=== PATIENT | female | born 1985 | race Caucasian/White ===

== ENCOUNTER 2018-06-06 17:40 | Emergency (ER) | payer MEDICAID, SELFPAY ==
[2018-06-06 17:49] VITALS: BP 95/58; PULSE 82; RESP 16; TEMP 36.8; O2SAT 99
--- NOTE | 2018-06-06 19:31 | ED.GENADUL_ITS ---
Disposition Clinical Impression: Contact dermatitis Disposition: HOME Condition: Stable Instructions: Dermatitis (ED) Additional Instructions: You may continue with your topical management as you have been previously to help with itch. Please take steroids as prescribed. Encourage hydration. Follow-up with primary care at the end of the week for reevaluation. If you develop pain, discharge, fever/chills or other new/worsening symptoms please seek care urgently once again. Prescriptions: PredniSONE [Deltasone] 40 mg PO .QD #10 tab Referrals: Jasmin Thomson [Primary Care Provider] - Medical Decision Making - Medical Decision Making Patient presents today with chief complaint of rash to the superior aspect of the left buttock. On exam, rash is consistent. Covering area of approximately 13 cm in diameter. Rash has persisted, has not been improving over the past week. Does appear excoriated and is quite bothersome to the patient. She has tried topical and oral [id number] agents to help with symptomatic management. She does report that the topical agents can help with itch briefly. However, given the length of symptoms I feel that treatment with steroids is appropriate at this time. Encourage hydration. We discussed care of the area and signs and symptoms of bacterial infection. Discussed when to seek care urgently once again. Advise follow-up with primary care in the next week for reevaluation. All of her questions and concerns were addressed and she is in agreement with this plan. History of Present Illness - General Chief complaint: RashLesion Stated complaint: UNKNOWN Time Seen by Provider: 06/06/18 19:29 Source: patient, RN notes reviewed Mode of arrival: ambulatory Limitations: no limitations - History of Present Illness Initial comments: Patient is a 32-year-old female presenting today with chief complaint of rash to the left side of her buttock. She reports that rash has been present for the past 7 days. Despite conservative management including hydrocortisone cream , Benadryl orally and spray, patient has not noted improvement of the rash. She reports that it is very pruritic. She denies any fevers or chills. She denies any pain. She is concerned she may have contracted poison shira as she has had in the past and feels quite similar. States that it began after wearing somebody else's pants. She denies having chatted with this other individual to see if they had similar rash. She does report that she is outside frequently and may also have come in contact with the plans. Patient is status post tubal ligation - Related Data PredniSONE [Deltasone] 40 mg PO .QD #10 tab 06/06/18 Allergies Allergy/AdvReac Type Severity Reaction Status Date / Time sulfamethoxazole Allergy Unknown Unverified 06/06/18 17:52 [From Bactrim] trimethoprim [From Bactrim] Allergy Unknown Unverified 06/06/18 17:52 aspirin AdvReac Severe rectal Unverified 06/06/18 17:52 bleeding Review of Systems Constitutional: no symptoms reported. denies: chills, fever, malaise Respiratory: no symptoms reported Musculoskeletal: denies: back pain, joint swelling Skin: as per HPI, rash Neurological: denies: abnormal gait Past Medical History - Past Medical History Medical history: no medical history Surgical history: no surgical history General Exam - General Limitations: no limitations General appearance: alert, in no apparent distress - Eye Eye exam: Present: normal apperance - Respiratory Respiratory exam: Absent: respiratory distress - GI/Abdominal GI/Abdominal exam: Present: other (No rash) - Extremities Exam Extremities exam: Present: normal inspection - Back Exam Back exam: Present: rash noted (Rashes noted on the superior aspect of the patient's left buttocks. Is erythematous, appears excoriated slightly raised. Patient is consistent with urticaria. No surrounding erythema. No pain elicited with palpation. No open area. No discharge) - Neurological Exam Neurological exam: Present: alert, normal gait - Psychiatric Psychiatric exam: Present: normal affect, normal mood - Skin Skin exam: Present: rash (As above) Course Vital Signs - 24 hr 06/06/18 17:49 Temperature 36.8 C Pulse 82 Respiratory 16 Rate Blood Pressure 95/58 Pulse Oximetry 99
== END 2018-06-06 19:40 | disposition home or self-care (01) ==
PROVIDERS: Emergency Provider Physician Assistant; PCP Family Medicine
DX: L25.9 Unspecified contact dermatitis, unspecified cause (principal)
CPT/HCPCS: 99283

== ENCOUNTER 2019-01-04 02:50 | Emergency (ER) | payer MEDICAID, SELFPAY ==
[2019-01-04 02:53] VITALS: BP 111/84; PULSE 90; RESP 16; TEMP 36.4; O2SAT 100
--- NOTE | 2019-01-04 03:07 | W.ED.GENAD ---
Discharge Plan Disposition Patient Disposition: HOME Condition: Stable Discharge Details Chief Complaint: Nk/Back Pain Clinical Impression: Acute torticollis Primary Care Provider: Abigail Vazquez ED Provider: Santana Arceo Home Meds and New Rx's Prescriptions: No Action No Known Home Meds RF: 0 Discharge Instructions Instructions: Spasmodic Torticollis (ED) Additional Instructions: 1. Drink plenty of fluids. 2. Continue all medications as prescribed. 3. Acetaminophen 1000mg every 4 hours (up to 5 time a day) and/or ibuprofen 600mg every 6 hours as needed for fever or pain. 4. Activity as tolerated. Ice sore areas frequently. Return to the Emergency Department (ED) if your condition worsens, does not improve as expected, or for ANY other concerns. Specifically, return if you have new or uncontrolled pain, worsening fever, difficulty breathing, vomiting, or are unable to drink fluids. Stand Alone Forms: Work Release Discharge Data Discharge Date/Time-TO BE ENTERED AT DEPARTURE: 01/04/19 03:37 Medical Decision Making Presents with new left-sided neck pain which began after she fell asleep on her couch and then later was walking towards her bedroom. No recent trauma or inciting event. She has no other constitutional complaints including no headache, radiating pain or neurological symptoms to her upper extremity. Exam significant for soft tissue tenderness which reproduces subjective pain. Full normal neurological exam and no pain or tenderness in the neck neurovascular distribution. Treated with OTC analgesia and with a paracervical muscle injection. Discharged with plan for OTC analgesia, ice as needed, and activity as tolerated. Pt evaluated immediately prior to discharge with improved symptoms, normal vital signs, and tolerating PO. The patient feels appropriate for discharge home. Discussed clinical/diagnostic findings. Discharged with a clear plan for outpatient follow up. Given usual and customary return instructions prior to discharge. Medical Records Medical records reviewed: Yes I reviewed the patient's medical records. HPI 33-year-old woman with a past medical history which includes tobacco abuse presents with new onset of severe left paracervical soft tissue neck pain. Ms. Espinosa recounts having fallen asleep on her couch and then as she got up and was walking upstairs towards her bedroom, felt a popping sensation to her left neck with severe neck pain. She presents with severe pain exacerbated by palpation or head rotation. She denies any generalized headache or pain radiating towards her upper extremities. She denies any visual changes, hearing loss, or focal extremity weakness/numbness/tingling. She denies palpitations or tachyarrhythmia. She has taken no analgesia prior to presentation here. General Date/Time Provider Initiated Documentation: 01/04/19 03:01. Related Data Home Medications Medication Instructions Recorded Confirmed Unknown [No Known Home Meds] 01/04/19 01/04/19 Allergies Allergy/AdvReac Type Severity Reaction Status Date / Time sulfamethoxazole Allergy Unknown Unverified 01/04/19 02:53 [From Bactrim] trimethoprim [From Bactrim] Allergy Unknown Unverified 01/04/19 02:53 aspirin AdvReac Severe rectal Unverified 01/04/19 02:53 bleeding General Stated Complaint: Nk/Back Pain SUE: 4 Review of Systems Review of Systems All systems are reviewed and are unremarkable except as noted in HPI and below: CONSTITUTIONAL: no fevers/chills, no weakness or change in appetite EYES: no change in vision HEENT: no throat pain or difficulty swallowing; left paracervical soft tissue neck pain and tenderness CARDIOVASCULAR: no chest pain, palpitations, leg swelling, or diaphoresis RESPIRATORY: no cough, dyspnea, wheezing GASTROINTESTINAL: no abdominal pain, melena, nausea/emesis GENITOURINARY: no dysuria, flank pain, MUSCULOSKELETAL: no pack pain, myalgias, arthralgias INTEGUMENTARY: no rash, no wounds NEUROLOGIC: no headache, focal weakness, difficulty with speech, numbness PSYCHIATRIC: no confusion, no anxiety HEME: no easy bruising or bleeding ALLERGIC: no urticaria [facility] Social History Smoking/Tobacco Use Status: Current every day Tobacco Type: cigarettes Alcohol Intake: current Alcohol Intake frequency: a few times a week Drug use: Never Substance use type: marijuana Do you feel safe at home: Yes Do you feel safe in your relationship?: Yes Exam Narrative Exam Narrative: Nursing note and vital signs have been reviewed and noted. GENERAL: alert, active, no acute distress, well -hydrated, well-nourished HEENT: atraumatic/normocephalic, PERRLA, EOMI, conjunctiva clear, external ears/canals normal, nasal mucosa normal NECK: Range of motion limited by left paracervical soft tissue pain. Exquisite soft tissue tenderness to palpation which reproduces subjective pain. No posterior cervical tenderness. No tenderness in the distribution of the carotid/internal jugular vascular distribution. CARDIOVASCULAR: nl pulses, no edema PULMONARY: nl effort, no audible wheezing or stridor ABDOMEN: non-distended EXTREMITY: normal muscle tone, all joints with FROM, no deformity NUERO: normal mentation, moving all extremities, normal stance and gait, no upper extremity motor weakness is suggestive of brachial plexus/upper nerve deficit. PSYCH: alert and oriented SKIN: no new rashes or lesions Course Vital Signs Temperature 97.5 F L 01/04/19 02:53 Pulse 90 01/04/19 02:53 Respiratory Rate 16 01/04/19 02:53 Blood Pressure 111/84 01/04/19 02:53 Pulse Oximetry 100 01/04/19 02:53 Temperature 97.5 F L 01/04/19 02:53 Temperature Source Temporal Artery Scan 01/04/19 02:53 Pulse 90 01/04/19 02:53 Respiratory Rate 16 01/04/19 02:53 Blood Pressure 111/84 01/04/19 02:53 Blood Pressure Position Sitting 01/04/19 02:53 Pulse Oximetry 100 01/04/19 02:53 Oxygen Delivery Method Room Air 01/04/19 02:53 Oxygen Flow Rate 0 01/04/19 02:53 Pain Level 4 01/04/19 02:53 Procedures Other Description: Paracervical superior trapezius injection: Soft tissue prepped 1.5 cm on either side of C6/7 with alcohol. Freeze spray used prior to inserting a 27-gauge needle into each paravertebral region. 1.5 cm of 0.5 bupivacaine injected after initially aspirating. Complication: None
[2019-01-04] MEDS: Acetaminophen 500 MG TAB 1000 MG PO (03:09)
[2019-01-04] MEDS: Ibuprofen 600 MG TAB PO (03:09)
--- NOTE | 2019-01-04 03:13 | ED.GENADUL_ITS ---
Discharge Plan Disposition Patient Disposition: HOME Condition: Stable Discharge Details Chief Complaint: Nk/Back Pain Clinical Impression: Acute torticollis Primary Care Provider: Abigail Vazquez ED Provider: Santana Arceo Home Meds and New Rx's Prescriptions: No Action No Known Home Meds RF: 0 Discharge Instructions Instructions: Spasmodic Torticollis (ED) Additional Instructions: 1. Drink plenty of fluids. 2. Continue all medications as prescribed. 3. Acetaminophen 1000mg every 4 hours (up to 5 time a day) and/or ibuprofen 600mg every 6 hours as needed for fever or pain. 4. Activity as tolerated. Ice sore areas frequently. Return to the Emergency Department (ED) if your condition worsens, does not improve as expected, or for ANY other concerns. Specifically, return if you have new or uncontrolled pain, worsening fever, difficulty breathing, vomiting, or are unable to drink fluids. Stand Alone Forms: Work Release Discharge Data Discharge Date/Time-TO BE ENTERED AT DEPARTURE: 01/04/19 03:37 Medical Decision Making Presents with new left-sided neck pain which began after she fell asleep on her couch and then later was walking towards her bedroom. No recent trauma or inciting event. She has no other constitutional complaints including no headache, radiating pain or neurological symptoms to her upper extremity. Exam significant for soft tissue tenderness which reproduces subjective pain. Full normal neurological exam and no pain or tenderness in the neck neurovascular distribution. Treated with OTC analgesia and with a paracervical muscle injection. Discharged with plan for OTC analgesia, ice as needed, and activity as tolerated. Pt evaluated immediately prior to discharge with improved symptoms, normal vital signs, and tolerating PO. The patient feels appropriate for discharge home. Discussed clinical/diagnostic findings. Discharged with a clear plan for o utpatient follow up. Given usual and customary return instructions prior to discharge. Medical Records Medical records reviewed: Yes I reviewed the patient's medical records. HPI 33-year-old woman with a past medical history which includes tobacco abuse presents with new onset of severe left paracervical soft tissue neck pain. Ms. Espinosa recounts having fallen asleep on her couch and then as she got up and was walking upstairs towards her bedroom, felt a popping sensation to her left neck with severe neck pain. She presents with severe pain exacerbated by palpation or head rotation. She denies any generalized headache or pain radiating towards her upper extremities. She denies any visual changes, hearing loss, or focal extremity weakness/numbness/tingling. She denies palpitations or tachyarrhythmia. She has taken no analgesia prior to presentation here. General Date/Time Provider Initiated Documentation: 01/04/19 03:01 . Related Data Home Medications Medication Instructions Recorded Confirmed Unknown [No Known Home Meds] 01/04/19 01/04/19 Allergies Allergy/AdvReac Type Severity Reaction Status Date / Time sulfamethoxazole Allergy Unknown Unverified 01/04/19 02:53 [From Bactrim] trimethoprim [From Bactrim] Allergy Unknown Unverified 01/04/19 02:53 aspirin AdvReac Severe rectal Unverified 01/04/19 02:53 bleeding General Stated Complaint: Nk/Back Pain SUE: 4 Review of Systems Review of Systems All systems are reviewed and are unremarkable except as noted in HPI and below: CONSTITUTIONAL: no fevers/chills, no weakness or change in appetite EYES: no change in vision HEENT: no throat pain or difficulty swallowing; left paracervical soft tissue neck pain and tenderness CARDIOVASCULAR: no chest pain, palpitations, leg swelling, or diaphoresis RESPIRATORY: no cough, dyspnea, wheezing GASTROINTESTINAL: no abdominal pain, melena, nausea/emesis GENITOURINARY: no dysuria, flank pain, MUSCULOSKELETAL: no pack pain, myalgias, arthralgias INTEGUMENTARY: no rash, no wounds NEUROLOGIC: no headache, focal weakness, difficulty with speech, numbness PSYCHIATRIC: no confusion, no anxiety HEME: no easy bruising or bleeding ALLERGIC: no urticaria [facility] Social History Smoking/Tobacco Use Status: Current every day Tobacco Type: cigarettes Alcohol Intake: current Alcohol Intake frequency: a few times a week Drug use: Never Substance use type: marijuana Do you feel safe at home: Yes Do you feel safe in your relationship?: Yes Exam Narrative Exam Narrative: Nursing note and vital signs have been reviewed and noted. GENERAL: alert, active, no acute distress, well -hydrated, well-nourished HEENT: atraumatic/normocephalic, PERRLA, EOMI, conjunctiva clear, external ears/canals normal, nasal mucosa normal NECK: Range of motion limited by left paracervical soft tissue pain. Exquisite soft tissue tenderness to palpation which reproduces subjective pain. No posterior cervical tenderness. No tenderness in the distribution of the caroti d/internal jugular vascular distribution. CARDIOVASCULAR: nl pulses, no edema PULMONARY: nl effort, no audible wheezing or stridor ABDOMEN: non-distended EXTREMITY: normal muscle tone, all joints with FROM, no deformity NUERO: normal mentation, moving all extremities, normal stance and gait, no upper extremity motor weakness is suggestive of brachial plexus/upper nerve deficit. PSYCH: alert and oriented SKIN: no new rashes or lesions Course Vital Signs Temperature 97.5 F L 01/04/19 02:53 Pulse 90 01/04/19 02:53 Respiratory Rate 16 01/04/19 02:53 Blood Pressure 111/84 01/04/19 02:53 Pulse Oximetry 100 01/04/19 02:53 Temperature 97.5 F L 01/04/19 02:53 Temperature Source Temporal Artery Scan 01/04/19 02:53 Pulse 90 01/04/19 02:53 Respiratory Rate 16 01/04/19 02:53 Blood Pressure 111/84 01/04/19 02:53 Blood Pressure Position Sitting 01/04/19 02:53 Pulse Oximetry 100 01/04/19 02:53 Oxygen Delivery Method Room Air 01/04/19 02:53 Oxygen Flow Rate 0 01/04/19 02:53 Pain Level 4 01/04/19 02:53 Procedures Other Description: Paracervical superior trapezius injection: Soft tissue prepped 1.5 cm on either side of C6/7 with alcohol. Freeze spray used prior to inserting a 27-gauge needle into each paravertebral region. 1.5 cm of 0.5 bupivacaine injected after initially aspirating. Complication: None
[2019-01-04] MEDS: Bupivacaine 0.5% Pres-Free 30 ML VIAL (03:25)
== END 2019-01-04 03:37 | disposition home or self-care (01) ==
LOC: ER 03:35
PROVIDERS: Emergency Provider Emergency Medicine; PCP Family Medicine
DX: M43.6 Torticollis (principal)
CPT/HCPCS: 99282

== ENCOUNTER 2021-04-04 13:37 | Emergency (ER) | payer MEDICAID, SELFPAY ==
[2021-04-04 13:40] VITALS: BP 119/74; PULSE 108; RESP 18; TEMP 37.2; O2SAT 98
--- NOTE | 2021-04-04 13:41 | ED.GENADUL_ITS ---
Discharge Plan Disposition Patient Disposition: HOME Condition: Stable Discharge Details Clinical Impression: Injury of knee Primary Care Provider: Abigail Vazquez ED Provider: Benjamin Marshall Home Meds and New Rx's Prescriptions: New oxycodone-acetaminophen [Percocet] 5-325 mg tablet 1 tab PO Q8H PRNQty: 8 RF: 0 Discharge Instructions Instructions: Swollen Knee Joint (ED) Additional Instructions: Percocet as directed, remember this medication may cause drowsiness and/or constipation. [id number] Motrin as directed for symptomatic control. Continue to wear Vincent wrap and knee immobilizer, continue to use crutches and be nonweightbearing. Rest, elevate, cool compresses every 2 hours for 20 minutes. Have your MRI performed on Wednesday as already scheduled and follow-up with the [facility] as scheduled. I am giving you the name and number of our orthopedic team here if you decide to be seen here in [facility] versus [facility]. Please watch for new or worsening symptoms and return to the ER for any concerns Referrals: Mane Dumont MD [ [facility] STAFF PHYSICIAN] - Discharge Data Discharge Date/Time-TO BE ENTERED AT DEPARTURE: 04/04/21 14:55 Medical Decision Making 35-year-old female presents with a left knee injury that she sustained last Wednesday, x-rays [facility] were unremarkable, diagnosed with a patella dislocation. Subsequently seen at the [facility] yesterday and awaiting MRI on Wednesday. Examination is difficult because of her guarding but certainly concerning for internal derangement. Neuro and vascular intact, normal dorsalis pedal pulse, capillary refill. No calf discomfort or palpable cord. Patient felt as though her questions were not answered yesterday, I spent ample time answering all of her questions and concerns to the best of my ability. Today I see no indication for repeat x-ray as she already had one. MRI is scheduled for just a few days from now. She already is placed in an Vincent wrap, knee immobilizer and has crutches. After answering all of her questions, she does feel more comfortable with the overall situation and understands that she will need an MRI and if the MRI shows internal derangement then likely she will require surgery for definitive care. I will provide her with a referral to our orthopedic team as she is not sure she wants to go back to the [facility]. Lastly, I will provide her with a tablets additional for Percocet as she has run out of her prescription. We discussed the importance of anti-inflammatory medication, resting, elevating, and cool compresses. Encouraged to return to the ER for new or worsening symptoms. Medical Records Medical records reviewed: Yes I reviewed the patient's medical records. HPI General Mode of arrival: ambulatory . Date/Time Provider Initiated Documentation: 04/04/21 13:41 . Limitations to Documentation: no limitations . Information obtained by: patient . HPI Narrative: 35-year-old female, denies significant past medical history, presenting for left knee pain. She states that last Wednesday she dislocated her patella, was seen at [facility], had an x-ray and set up with orthopedics. She subsequently followed up with [facility] yesterday, she states that they did not really give her any additional information, she is out of pain medication, and she is awaiting MRI on Wednesday. She is frustrated because she lives in a house with many stairs, is h aving a hard time getting around, and does not know if there is anything else that she should be doing. Patient is already wearing Vincent wrap, knee immobilizer, and using crutches, nonweightbearing. She denies any additional injury, chest pain, shortness of breath, numbness, weakness. She does report that her lower extremities occasionally tingling with certain positioning. Related Data Home Medications Medication Instructions Recorded Confirmed oxycodone-acetaminophen [Percocet] 1 tab PO Q8H PRN #8 tab 04/04/21 Previous Rx's Medication Instructions Recorded oxycodone-acetaminophen [Percocet] 1 tab PO Q8H PRN #8 tab 04/04/21 Allergies Allergy/AdvReac Type Severity Reaction Status Date / Time sulfamethoxazole Allergy Unknown Unverified 04/04/21 13:44 [From Bactrim] trimethoprim [From Bactrim] Allergy Unknown Unverified 04/04/21 13:44 aspirin AdvReac Severe rectal Unverified 04/04/21 13:44 bleeding General SUE: 4 Review of Systems Constitutional Constitutional: Denies fever(s) and Denies weakness Cardiovascular Cardiovascular: Denies chest pain and Denies dyspnea Respiratory Respiratory: Denies dyspnea Musculoskeletal Musculoskeletal: Reports arthralgias, Denies numbness, Reports stiffness and Reports tingling Integumentary/Breasts Skin/Breast: Denies rash Neurologic Neurologic: Denies numbness, Reports tingling and Denies weakness [facility] Social History Smoking/Tobacco Use Status: Former Tobacco Use Quit Date: 03/11/21 Smoking risk assessment performed?: Yes Alcohol Intake: current Alcohol Intake frequency: a few times a week Drug use: Occasionally Substance use type: marijuana Do you feel safe at home: Yes Do you feel safe in your relationship?: Yes Exam Const General: cooperative, healthy appearing, comfortable and no acute distress Orientation: alert and awake HENMT Head: normal to inspection, normocephalic and atraumatic Eyes Conjunctivae: conjunctivae normal Neck Neck: normal visual inspection, trachea midline and supple Resp Effort & Inspection: normal respiratory effort and able to speak in complete sentences Cardio Rate: regular rate Rhythm: regular rhythm Skin General skin exam: no rashes or lesions noted Neuro General: patient alert, patient awake, moves all extremities and no focal motor deficits Cognition: normal cognition Speech: speech normal Gait: gait assisted Method: crutches Sensory Exam: no sensory deficits noted Extrem General: capillary refill normal Left lower extremity: normal capillary refill, hip/thigh Details: tenderness and normal ROM; no swelling, knee Details: abnormal to inspection, tenderness, swelling and abnormal ROM, lower leg Details: tenderness and no edema; no palpable cords, ankle Details: normal to inspection, no edema and normal ROM; no tenderness and no swelling and foot Details: normal capillary refill, normal to inspection and toes with normal ROM; no tenderness Other: Patient with diffuse ecchymosis from the lateral thigh down to the mid tib-fib region. Knee with diffuse anterior ecchymosis, swelling, very limited examination. Patient holds her knee in slightly flexed position. Limited range of motion secondary to discomfort. There is discomfort with palpation diffusely, increased pain with anterior drawer, varus and valgus stress. Difficult to assess for laxity of the joint. Normal dorsalis pedal pulse and capillary refill. Psych Appearance: grossly normal Mental Status: mental status grossly normal
== END 2021-04-04 14:55 | disposition home or self-care (01) ==
PROVIDERS: Emergency Provider Physician Assistant; PCP Family Medicine
DX: S83.092A Other subluxation of left patella, initial encounter (principal); X58.XXXA Exposure to other specified factors, initial encounter
CPT/HCPCS: 99283

== ENCOUNTER 2021-06-07 10:09 | Outpatient (REF) | payer MEDICAID, SELFPAY ==
[2021-06-09 13:06] LABS: COVID-19 RT-PCR UVMMC Result Negative (Negative)
== END 2021-06-07 10:10 | disposition home or self-care (01) ==
LOC: NCHCN 10:09
PROVIDERS: PCP Family Medicine; Visit Provider Nurse Practitioner Family
DX: J06.9 Acute upper respiratory infection, unspecified (principal); Z20.822 Contact with and (suspected) exposure to COVID-19
CPT/HCPCS: U0003

== ENCOUNTER 2024-10-10 14:40 | Outpatient (REF) | payer SELFPAY ==
--- OUTSIDE RECORDS SUMMARY | 2024-10-10 14:45 | XMS_ITS | Encounter Summary ---
Author Organization [facility] Address [facility] [place] [address] Care Team Providers Care Director Of Teenage Activities Name Role Phone Deborah Rodriguez IUSS MASTER ANALYST Primary Care Provider [phone] Reason for Visit * Reason Comments Follow-up Psoriasis Encounter Details Date Type Department Care Team (Late st Contact Info) Description 10/24/2015 2:00 PM EST Office Visit Dermatology at [place] [address] [facility] [place] [phone] Perry Ocasio MD [address], [place] [address] Psoriasis Social History Tobacco Use Types Packs/Day Years Used Date Smoking Tobacco: Former Sex and Gender Information Value Date Recorded Sex Assigned at Not on file Gender Identity Not on file Sexual Orientation Not on file documented as of this encounter Patient Instructions * Patient Instructions* Sylvie Murphy LPN - 10/24/2015 2:06 PM EST Images from the original note were not included. [facility] Psoriasis: After Your Visit Your Care Instructions Psoriasis (say dzs-JX-mi-cat) is a long-term skin problem that causes thick, white, silvery, or red patches on the skin. The patches may be small or large, and they occur most often on the knees, elbows, scalp, hands, feet, or lower back. The skin may be scaly. If the condition is severe, your skin can become itchy and tender. Psoriasisalso can be embarrassing if the patches are on visible areas. You can treat psoriasis with good care at home and with medicine from your doctor. You may put medicine on your skin and take pills or have shots to stop the redness and swelling. Your doctor also may suggest ultraviolet light treatments. Follow-up care is a dunn part of your treatment and safety. Be sure to make and go to all appointments, and call your doctor if you are having problems. It???s also a good idea to know your test results and keep a list of the medicines you take. How can you care for yourself at home? ?? If your doctor prescribes medicine, use it exactly as prescribed. Call your doctor if you think you are having a problem with your medicine. ?? Keep your skin moist. After bathing, put an ointment, cream, or lotion on your skin while it is still damp. This seals in moisture. Use ners-gvt-xbdnaja products that your doctor suggests. These may include Cetaphil, Lubriderm, or Eucerin. Petroleum jelly (such as Vaseline) and vegetable shortening (such as Crisco) also work. ?? If you have psoriasis on your scalp, use a mild tar shampoo, such as Neutrogena T/Gel, Polytar, or Zetar. Other scalp lotions, such as Dritho-Scalp, can be applied for several hours and then washed out. Shampoos that contain zinc pyrithione (such as Danex or Head & Shoulders), or selenium sulfide (such as Exsel or Selsun) may also help. ?? Gently soften and remove skin crusts. Put cream on the crusts and then peel off loose crusts. Removing crusts may help creams and lotions get into the skin. However, peel off crusts carefully so that you do not irritate your skin. ?? Follow your doctor's advice for sunlight or ultraviolet light treatment. ?? Avoid harsh skin products, such as those that contain alcohol. ?? Cover your skin in cold weather. ?? Try to prevent sunburn. Although short periods of sun exposure reduce psoriasis in most people, too much sun can damage the skin and cause skin cancer. In addition, sunburns can trigger psoriasis.Use sunscreen on areas of your skin that do not have psoriasis. Make sure the sunscreen blocks ultraviolet rays (both UVA and UVB) and has a sun protection factor (SPF) of at least 15. Use it every day, even when it is cloudy. Some doctors may recommend a higher SPF, such as 30. ?? Take care to avoid accidents such as cutting or scraping your skin. An injury to the skin can cause psoriasis patches to form anywhere on the body, including the area of the injury. ?? Avoid tight shoes, clothing, watchbands, and hats. These may irritate your skin. ?? Try to control stress and anxiety. They may cause psoriasis to appear suddenly or can make symptoms worse. ?? Use a vaporizer or humidifier to add moisture to your bedroom. Follow the directions for cleaning the machine. ?? Seek support from family and friends. Talk to a counselor or other professional if you feel sad about your condition and need more help. When should you call for help? Call your doctor now or seek immediate medical care if: ?? You have signs of infection, such as: ?? Increased pain, swelling, warmth, or redness. ?? Red streaks leading from the area. ?? Pus draining from the area. ?? A fever. Watch closely for changes in your health, and be sure to contact your doctor if: ?? Your skin is more red and irritated than usual, especially if you also have another illness. ?? You need to talk to someone about how you are coping with the illness. Where can you learn more? Visit our health information library at http://Localocracy/[employer] IP Servicesinfo You can also view health information on [employer], your personal patient account. Log in or sign up today. Enter U759 in the search box to learn more about Psoriasis: After Your Visit. ?? [id number] [employer]. Care instructions adapted under license by [facility]. This care instruction is for use with your licensed healthcare professional. If you have questions about a medical condition or this instruction, always ask your healthcare professional. [employer] disclaims any warranty or liability for your use of this information. Content Version: 10.4.303365; Current as of: December 20, 2013 documented in this encounter Progress Notes * Perry Ocasio MD - 10/24/2015 2:16 PM EST Problems: 1. Followup psoriasis. 2. Previously on methotrexate, August through September 2013, off since then. 3. Controlling psoriasis with intermittent Kenalog injections for elbow involvement. Lisha follows up and has been doing well. Her psoriasis started to come back again, this despite using the halobetasol cream. Also, she has had a problem with acne, which is a new problem for her on her face. She is still having regular menstrual cycles. There is no periodicity to her acne. Physical examination today reveals a pleasant, 30-year-old woman who has small plaques of psoriasis, one on the left and one on the right elbow, each about a nickel size with adjacent dime-size plaques next to it. She has no other areas of involvement. Assessment and Plan: 1. Psoriasis, mild recurrence, bilateral elbows. Nothing on her shins. a. Today the elbow sites were injected with Kenalog 5 mg/mL; a total of 2.5 mL was injected. b. Patient tolerated it well. c. Return to clinic p.r.n. for recurrence. d. Previously the patient had tried clobetasol and fluocinonide creams. 2. Adult acne. a. Begin trial of 1% clindamycin solution, applying to face once daily after washing. b. Continue to use Clearasil wipes twice daily. COPY: Daryn Barbosa M.D. documented in this encounter Plan of Treatment Upcoming Encounters Date Type Department Care Team (Late st Contact Info) Description 10/17/2024 3:30 PM EST Office Visit Dermatology at [place] [address] [facility] [place] [address] Perry Ocasio MD [address] [facility], [place] [address] documented as of this encounter Visit Diagnoses Diagnosis Psoriasis Other psoriasis documented in this encounter Care Teams Director Of Teenage Activities Relationship Specialty Start Date End Date Deborah Rodriguez APRN [facility] 1 [facility] [place] [address] PCP - General 09/12/13 04/05/17 documented as of this encounter
--- OUTSIDE RECORDS SUMMARY | 2024-10-10 14:45 | XMS_ITS | Encounter Summary ---
Author Organization [facility] Address [address] [place] [address] Care Team Providers Care Sliver Machine Operator Name Role Phone Unavailable Primary Care Provider Unavailabl e Encounter Details Date Type Department Care Team (Late st Contact Info) Description 11/11/2001 Results Only [facility] - Maple conversion [address] [place] [address] Abigail Vazquez MD [address] [facility] [address] [place] [address] Social History Tobacco Use Types Packs/Day Years Used Date Smoking Tobacco: Never Assessed Comments Unknown Sex and Gender Information Value Date Recorded Sex Assigned at Not on file Legal Sex Female 18:26 EST Gender Identity Not on file Sexual Orientation Not on file documented as of this encounter Plan of Treatment Not on file documented as of this encounter Procedures Procedure Name Priority Date/Time Associated Diagnosis Comments CYTOPATHOLOGY Routine 11/11/2001 0:00 EST documented in this encounter Results * CYTOPATHOLOGY (11/11/2001 0:00 EST) Pathology Report: CYTOPATHOLOGY REPORT Reports generated via electronic interface contain original data; however they are lacking the format of the original report. Caution should be taken when reading/interpreti ng unformatted reports. Name: ? WYATT ESPINOSA ? Accession #: ? [id number] : ? 1985 (Age: 16) ??F ?Collect Date: ? 11/11/2001 Location: ? [facility] ? Receive Date: ? 11/15/2001 Provider: ?ABIGAIL VAZQUEZ MD Copy to: ? Specimen/Source: ?ThinPrep Pap Test, Cervix/Endocervix Last Menstrual Period: ? 11/05/01 Menstrual/Pregnanc y Status: ? Post Previous Gynecologic Pathology: ? ASC-US ? SPECIMEN ADEQUACY ? Satisfactory for Evaluation - transformation zone component present GENERAL CATEGORIZATION ? Negative for Intraepithelial Lesion or Malignancy ? Document reviewed and electronically signed by: ? Angela Henry, GROVER(ASCP)(IAC) ? Report Date: ??11/16/2001 16:26 End of Report ANTHONY GUILLERMO 11/11/2001 11/15/2001 us Abigail Vazquez MD PATHOLOGY ORDERABLES Final Resul t ANTHONY GUILLERMO [address] [place] [address] documented in this encounter Visit Diagnoses Not on filedocumented in this encounter
--- OUTSIDE RECORDS SUMMARY | 2024-10-10 14:45 | XMS_ITS | Encounter Summary ---
Author Organization [facility] Address [address] [place] [address] Care Team Providers Care Director Of Pharmacy Name Role Phone Unavailable Primary Care Provider Unavailabl e Encounter Details Date Type Department Care Team (Latest Contact Info) Description 09/09/2001 10:15 EST - 09/09/2001 11:59 EST Hospital Encounter [address] [address] Bessy Perez MD Discharge Disposition: Auto Discharge Social History Tobacco Use Types Packs/Day Years Used Date Smoking Tobacco: Never Assessed Comments Unknown Sex and Gender Information Value Date Recorded Sex Assigned at Not on file Legal Sex Female 18:26 EST Gender Identity Not on file Sexual Orientation Not on file documented as of this encounter Discharge Disposition Disposition Code Departure Means Destination Auto Discharge documented in this encounter Plan of Treatment Not on file documented as of this encounter Visit Diagnoses Not on filedocumented in this encounter
--- OUTSIDE RECORDS SUMMARY | 2024-10-10 14:45 | XMS_ITS | Encounter Summary ---
Author Organization [facility] Address [facility] [place] [address] Care Team Providers Care Digital Solutions Architect Name Role Phone Jasmin Thomson DO Primary Care Provider Unava ilable Reason for Visit * Reason Comments Psoriasis Encounter Details Date Type Department Care Team ([facility] st Contact Info) Description 12/05/2019 2:45 PM EST Office Visit Dermatology at [address] [place] [phone] Perry Ocasio MD [address], [place] [address] Psoriasis; Acne vulgaris Social History Tobacco Use Types Packs/Day Years Used Date Smoking Tobacco: Former Smokeless Tobacco: Never Sex and Gender Information Value Date Recorded Sex Assigned at Not on file Gender Identity Not on file Sexual Orientation Not on file documented as of this encounter Progress Notes * Perry Ocasio MD - 12/05/2019 2:45 PM EST Problem: 1. 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 ??Previously on methotrexate August - September 2013 3. ??Controlling her psoriasis with intermittent Kenalog injections for elbow involvement 4. ??Utilizing clindamycin 1% solution??prn??for adult acne Lisha follows up for repeat Kenalog injection. She is looking forward to leaving in mid December on atrip to [facility]. She wants to have her psoriasis and skin clear before then. Physical examination reveals a pleasant 34-year-old woman who has small papules of psoriasis on theleft elbow and the right distal dorsal foot. Little bit on the right medial Alley malleolus and will bit on the right elbow also she has a spot on the left lower hip Assessment and plan: Psoriasis, recurrent 1. Today after obtaining informed consent sites were injected with Kenalog 5 mg/mL a total of 2 mils utilized 2. Patient has tried numerous creams in the past and do not really seem to slow down the recurrenceof this nor do they help to clear the small papules 3. Recommend therefore that she is a good emollient cream to slow down the recurrence and return toclinic in 6 months for repeat check Acne vulgaris 1. Largely quiescent 2. Patient does have clindamycin 1% solution that she can apply as needed for mild flares. We will be happy to give her refills as needed. Cc: Jasmin Thomson DO documented in this encounter Plan of Treatment Upcoming Encounters Date Type Department Care Team (Late st Contact Info) Description 10/17/2024 3:30 PM EST Office Visit Dermatology at [place] [address] [facility] [place] [address] Perry Ocasio MD [address] [facility], [place] [address] documented as of this encounter Visit Diagnoses Diagnosis Psoriasis Other psoriasis Acne vulgaris Other acne documented in this encounter Care Teams Digital Solutions Architect Relationship Specialty Start Date End Date Jasmin Thomson DO PCP - General Family Medicine 04/06/17 09/20/23 documented as of this encounter
--- OUTSIDE RECORDS SUMMARY | 2024-10-10 14:45 | XMS_ITS | Encounter Summary ---
Author Organization [facility] [place] [address] Care Team Providers Care Sole Conditioner Name Role Phone Jasmin Thomson DO Primary Care Provider Unava ilable Encounter Details Date Type Department Care Team (Latest Contact Info) Description 09/10/2023 Travel Social History Tobacco Use Types Packs/Day Years Used Date Smoking Tobacco: Former Smokeless Tobacco: Never Sex and Gender Information Value Date Recorded Sex Assigned at Not on file Gender Identity Not on file Sexual Orientation Not on file documented as of this encounter Plan of Treatment Upcoming Encounters Date Type Department Care Team (Late st Contact Info) Description 10/17/2024 3:30 PM EST Office Visit Dermatology at [place] [address] [place] [phone] Perry Ocasio MD [address], [place] [address] documented as of this encounter Visit Diagnoses Not on filedocumented in this encounter Care Teams Sole Conditioner Relationship Specialty Start Date End Date Jasmin Thomson DO PCP - General Family Medicine 04/06/17 09/20/23 documented as of this encounter
--- OUTSIDE RECORDS SUMMARY | 2024-10-10 14:45 | XMS_ITS | Encounter Summary ---
Author Organization [facility] Address [facility] [place] [address] Care Team Providers Care Human Resources Mgr Name Role Phone Daryn Barbosa MD Primary Care Provider [phone] Reason for Visit * Reason Comments Follow-up Encounter Details Date Type Department Care Team (Late st Contact Info) Description 09/11/2013 3:30 PM EST Office Visit Dermatology at [address] [place] [phone] Perry Ocasio MD [address] [facility], [place] [address] Psoriasis (Primary Dx) Social History Tobacco Use Types Packs/Day Years Used Date Smoking Tobacco: Unknown Sex and Gender Information Value Date Recorded Sex Assigned at Not on file Gender Identity Not on file Sexual Orientation Not on file documented as of this encounter Progress Notes * Perry Ocasio MD - 09/11/2013 4:00 PM EST Problem: Psoriasis, one month check. Lisha follows up and has been now on methotrexate for a month. She has seen marked improvement. Her psoriasis has really improved significantly. Physical examination reveals a pleasant 27-year-old woman who has significant flattening of the plaques of psoriasis over the elbows and almost total clearance of the guttate lesions on the arms, torso, and legs. She does have some hypopigmentation at sites of previous involvement. She just had her labs done this morning and they are not yet available from the lab. Assessment and Plan: 1. Psoriasis. a. Continue one more month of the current dosing of methotrexate, taking six of the 2.5 mg tablets p.o. every Wednesday, #24 dispensed with zero refills. b. After another month of this therapy, taper by one pill a week, to five, to four, to three, two, one, and then off of methotrexate after five additional weeks of therapy, #15 dispensed with zero refills. c. Prescription given for clobetasol cream, which she can use on a p.r.n. basis for any elbow involvement/recurrence. I am hopeful, however, that she will not have a major flare and that she will be able again to control her psoriasis just with topicals, as she has been able to do for the last three years prior to the strep pharyngitis and her guttate flare this summer. Return to clinic here will be on a p.r.n. basis. Patient knows to contact me if she has any flaring of her psoriasis again. COPY: Daryn Barbosa M.D. documented in this encounter Plan of Treatment Upcoming Encounters Date Type Department Care Team (Late st Contact Info) Description 10/17/2024 3:30 PM EST Office Visit Dermatology at [place] [address] [facility] [place] [address] Perry Ocasio MD [address], [place] [address] documented as of this encounter Visit Diagnoses Diagnosis Psoriasis- Primary Other psoriasis documented in this encounter Care Teams Human Resources Mgr Relationship Specialty Start Date End Date Daryn Barbosa MD [facility] [address] [place] [address] PCP - General 07/18/13 09/11/13 documented as of this encounter
--- OUTSIDE RECORDS SUMMARY | 2024-10-10 14:45 | XMS_ITS | Encounter Summary ---
Author Organization [facility] Address [address] [place] [address] Care Team Providers Care C++ Quant Developer Name Role Phone Unavailable Primary Care Provider Unavailabl e Encounter Details Date Type Department Care Team (Late st Contact Info) Description 06/12/2003 Results Only [facility] - Maple conversion [address] [place] [address] Cecille Buenrostro MD [address] [place] [address] Social History Tobacco Use Types Packs/Day Years [...] Priority Date/Time Associated Diagnosis Comments CYTOPATHOLOGY Routine 06/12/2003 0:00 EDT documented in this encounter Results * CYTOPATHOLOGY (06/12/2003 0:00 EDT) Pathology Report: CYTOPATHOLOGY REPORT Reports generated via electronic interface contain original data; however they are lacking the format of the original report. Caution should be taken when reading/interpreti ng unformatted reports. Name: ? WYATT ESPINOSA ? Accession #: ? [id number] : ? 1985 (Age: 17) ??F ?Collect Date: ? 06/12/2003 Location: ? [facility] ? Receive Date: ? 06/14/2003 Provider: ?CECILLE BUENROSTRO MD Copy to: ? Specimen/Source: ?ThinPrep Pap Test, Cervix/Endocervix Last Menstrual Period: ? Menstrual/Pregnanc y Status: ? Post Other: ? HPVA - HPV testing requested if ASC-US on the current ThinPrep Pap test. ? SPECIMEN ADEQUACY ? Unsatisfactory for Evaluation, - insufficient numbers of squamous epithelial cells (less than 10% of expected cellularity) - sample preparation compromised by excessive blood GENERAL CATEGORIZATION ? Specimen processed and examined, but unsatisfactory for evaluation of epithelial abnormality. Recommend repeat Pap test or further follow up, as clinically indicated. ? Document reviewed and electronically signed by: ? Angela Henry, GROVER(ASCP)(IAC) ? Report Date: ??06/18/2003 15:57 End of Report ANTHONY GUILLERMO 06/12/2003 06/14/2003 us Cecille Buenrostro MD PATHOLOGY ORDERABLES Final Resul t ANTHONY GUILLERMO [address] [place] [address] documented in this encounter Visit Diagnoses Not on filedocumented in this encounter
--- OUTSIDE RECORDS SUMMARY | 2024-10-10 14:45 | XMS_ITS | Encounter Summary ---
Author Organization [facility] Address [address] [place] [address] Care Team Providers Care Cadence Specialists Name Role Phone Unavailable Primary Care Provider Unavailabl e Encounter Details Date Type Department Care Team (Latest Contact Info) Description 08/26/2001 13:53 EST Hospital Encounter [facility] [address] [place] [address] Bessy Perez MD Discharge Disposition: Auto Discharge [...]
--- OUTSIDE RECORDS SUMMARY | 2024-10-10 14:45 | XMS_ITS | Encounter Summary ---
Author Organization [facility] [place] [address] Care Team Providers Care Epic Prelude Analyst Name Role Phone Deborah Rodriguez DIRECTOR OF ENTERPRISE APPLICATIONS Primary Care Provider [phone] Reason for Visit * Reason Comments Psoriasis Encounter Details Date Type Department Care Team (Late st Contact Info) Description 05/22/2016 4:45 PM EDT Office Visit Dermatology at [address] [place] [phone] Perry Ocasio MD [address] [facility], [place] [address] Psoriasis Social History Tobacco Use Types Packs/Day Years Used Date Smoking Tobacco: Former Sex and Gender Information Value Date Recorded Sex Assigned at Not on file Gender Identity Not on file Sexual Orientation Not on file documented as of this encounter Progress Notes * Perry Ocasio MD - 05/22/2016 4:45 PM EDT PROBLEM: 1. Followup psoriasis. 2. Previously on methotrexate, August through September 2013, off since then. 3. Controlling psoriasis with intermittent Kenalog injections for elbow involvement. 4. The patient is currently , she is due in August 2016. Lisha follows up and is doing well. She is here today with her daughter, Ann, and a niece, Mariah. She has been doing well, although she has a little bit of psoriasis on either elbow. Physical examination today reveals two 1.5 cm plaques of psoriasis, 1 on the left, 1 on the right elbow. Otherwise she is clear. She has nothing on her knees or shins. Her psoriasis is little bit better now, perhaps because of her being . ASSESSMENT AND PLAN: Psoriasis, mild recurrence, bilateral elbows, nothing on shins. A. Today sites were injected with Kenalog 1 mg/mL, a total of 1 mL injected between the 2 sites. B. The patient tolerated well. C. Return to clinic p.r.n. for recurrence. D. Reassured her about the safety of Kenalog injection during and wished her well for her delivery. cc: Daryn Barbosa MD documented in this encounter Plan of Treatment Upcoming Encounters Date Type Department Care Team (Late st Contact Info) Description 10/17/2024 3:30 PM EST Office Visit Dermatology at [place] [address] [facility] [place] [address] Perry Ocasio MD [address], [place] [address] documented as of this encounter Visit Diagnoses Diagnosis Psoriasis Other psoriasis documented in this encounter Care Teams Epic Prelude Analyst Relationship Specialty Start Date End Date Deborah Rodriguez APRN [facility] [address] [place] [address] PCP - General 09/12/13 04/05/17 documented as of this encounter
--- OUTSIDE RECORDS SUMMARY | 2024-10-10 14:45 | XMS_ITS | Encounter Summary ---
Author Organization [facility] Address [facility] [place] [address] Care Team Providers Care Acid Purification Equipment Operator Name Role Phone Jasmin Thomson DO Primary Care Provider Unava ilable Reason for Visit * Reason Comments Follow-up Psoriasis Encounter Details Date Type Department Care Team (Late st Contact Info) Description 12/06/2017 3:30 PM EST Office Visit Dermatology at [address] [place] [phone] Perry Ocasio MD [address], [place] [address] Psoriasis Social History Tobacco Use Types Packs/Day Years Used Date Smoking Tobacco: Former Smokeless Tobacco: Never Sex and Gender Information Value Date Recorded Sex Assigned at Not on file Gender Identity Not on file Sexual Orientation Not on file documented as of this encounter Progress Notes * Perry Ocasio MD - 12/06/2017 3:30 PM EST Problem: 1. Follow-up psoriasis 2. Previously on methotrexate, August - September 2013, off since then 3. Controlling her psoriasis with intermittent Kenalog injections for elbow involvement Lisha follows up is doing wonderfully. She is been doing well with just a slight recurrence after totally clearing following her last set of injections in March. She has noted a recurrence for the last month or so just on her left elbow really nothing much on the right. She gave about a year ago now to her healthy baby girl, Zahraa Alvarado. Physical examination feels a pleasant 32-year-old woman who continues to work at [employer] in [place]. She has a single 1.5 cm plaque on the left elbow, 2 small papules on the right elbow otherwise his psoriasis is clear Assessment plan: Psoriasis, mild recurrence bilateral elbows left worse than right 1. Today both sites were injected with Kenalog 5 mg/mL a total of 1 mL injected between both sites 2. Patient tolerated well 3. Return to clinic in another 6 months for repeat check. Cc: Jasmin Thomson DO documented in this encounter Plan of Treatment Upcoming Encounters Date Type Department Care Team (Late st Contact Info) Description 10/17/2024 3:30 PM EST Office Visit Dermatology at [place] [address] [place] [phone] Perry Ocasio MD [address] [facility], [place] [address] documented as of this encounter Visit Diagnoses Diagnosis Psoriasis Other psoriasis documented in this encounter Care Teams Acid Purification Equipment Operator Relationship Specialty Start Date End Date Jasmin Thomson DO PCP - General Family Medicine 04/06/17 09/20/23 documented as of this encounter
--- OUTSIDE RECORDS SUMMARY | 2024-10-10 14:45 | XMS_ITS | Encounter Summary ---
Author Organization [facility] Address [facility] [place] [address] Care Team Providers Care Geodetic Advisor Name Role Phone Jasmin Thomson DO Primary Care Provider Unava ilable Encounter Details Date Type Department Care Team (Late st Contact Info) Description 12/10/2020 4:30 PM EST Office Visit Dermatology at [address] [place] [phone] Perry Ocasio MD [address] [facility], [place] [address] Acne vulgaris; Psoriasis Social History Tobacco Use Types Packs/Day Years Used Date Smoking Tobacco: Former Smokeless Tobacco: Never Sex and Gender Information Value Date Recorded Sex Assigned at Not on file Gender Identity Not on file Sexual Orientation Not on file documented as of this encounter Progress Notes * Perry Ocasio MD - 12/10/2020 4:30 PM EST Problem: 1. 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 ??Previously on methotrexate August - September 2013 3. ??Controlling her psoriasis with intermittent Kenalog injections for elbow involvement 4. ??Utilizing clindamycin 1% solution??prn??for adult acne ?? Lisha follows up after last being seen in May. Actually things are doing quite well. She has a minimal amount of psoriasis developing just distal to the extensor elbows. The elbows themselves areclear. The somewhat atrophic site on the buttock has largely resolved fortunately. She continues working at [employer] in [facility]. Physical examination reveals minimal psoriasis some early papules developing on both extensor elbows. Assessment and plan: Psoriasis 1. Today Kenalog 5 mg/mL was injected into both sites 2. Return to clinic in 2 months for recheck 3. Patient is concerned that the elbows themselves will be soon to follow, therefore she requests today a 2-month follow-up for potential elbow injection at that time. If doing well she will cancel that and will make it for 6 months from now. CC: Jasmin Thomson DO documented in this encounter Plan of Treatment Upcoming Encounters Date Type Department Care Team (Late st Contact Info) Description 10/17/2024 3:30 PM EST Office Visit Dermatology at [place] [address] [place] [phone] Perry Ocasio MD [address] [facility], [place] [address] documented as of this encounter Visit Diagnoses Diagnosis Acne vulgaris Other acne Psoriasis Other psoriasis documented in this encounter Care Teams Geodetic Advisor Relationship Specialty Start Date End Date Jasmin Thomson DO PCP - General Family Medicine 04/06/17 09/20/23 documented as of this encounter
--- OUTSIDE RECORDS SUMMARY | 2024-10-10 14:45 | XMS_ITS | Encounter Summary ---
Author Organization [facility] Address [facility] [place] [address] Care Team Providers Care Curtains And Draperies Salesperson Name Role Phone Jasmin Thomson DO Primary Care Provider Unava ilable Reason for Visit * Reason Comments Follow-up Encounter Details Date Type Department Care Team ([facility] st Contact Info) Description 09/10/2023 8:15 AM EST Office Visit Dermatology at [address] [place] [phone] Perry Ocasio MD [address], [place] [address] Psoriasis Social History Tobacco Use Types Packs/Day Years Used Date Smoking Tobacco: Former Smokeless Tobacco: Never Sex and Gender Information Value Date Recorded Sex Assigned at Not on file Gender Identity Not on file Sexual Orientation Not on file documented as of this encounter Progress Notes * Perry Ocasio MD - 09/10/2023 8:15 AM EST Problem: 1. Follow-up psoriasis recurrent on elbows 2. Previously on methotrexate August - September 2013 3. Controlling her psoriasis with intermittent Kenalog injections for elbow involvement 4. Utilizing clindamycin 1% solution prn for adult acne Lisha follows up for a 6-month check. She has been doing well. 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 Physical examination reveals a pleasant 38-year-old woman who has mild psoriasis recurring on her left elbow roughly a 1-1/2 cm plaque, with none on the right. She has no other areas of involvement. She is very pleased. Assessment plan: Psoriasis recurrent on the left elbow only 1. Today Kenalog 5 mg/mL injected into the left elbow site a total of 1.5 mL injected 2. Return to clinic in another 6 months for recheck 3. Patient knows she can return sooner if her right elbow does not develop recurrence. CC: Samir Carrillo DO documented in this encounter Plan of Treatment Upcoming Encounters Date Type Department Care Team (Late st Contact Info) Description 10/17/2024 3:30 PM EST Office Visit Dermatology at [place] [address] [place] [address] Perry Ocasio MD [address] [facility], [place] [address] documented as of this encounter Visit Diagnoses Diagnosis Psoriasis Other psoriasis documented in this encounter Care Teams Curtains And Draperies Salesperson Relationship Specialty Start Date End Date Jasmin Thomson DO PCP - General Family Medicine 04/06/17 09/20/23 documented as of this encounter
--- OUTSIDE RECORDS SUMMARY | 2024-10-10 14:45 | XMS_ITS | Encounter Summary ---
Author Organization [facility] Address [facility] [place] [address] Care Team Providers Care Olap Developer Name Role Phone Unknown Primary Care Provider Unavailabl e Reason for Visit * Reason Comments Psoriasis Encounter Details Date Type Department Care Team (Late st Contact Info) Description 10/28/2023 4:30 PM EST Office Visit Dermatology at [address] [place] [phone] Perry Ocasio MD [address], [place] [address] Psoriasis Social History Tobacco Use Types Packs/Day Years Used Date Smoking Tobacco: Former Smokeless Tobacco: Never Sex and Gender Information Value Date Recorded Sex Assigned at Not on file Gender Identity Not on file Sexual Orientation Not on file documented as of this encounter Progress Notes * Perry Ocasio MD - 10/28/2023 4:30 PM EST Problem: 1. Follow-up psoriasis recurrent on elbows 2. Previously on methotrexate August - September 2013 3. Controlling her psoriasis with intermittent Kenalog injections for elbow involvement 4. Utilizing clindamycin 1% solution prn for adult acne Lisha follows up 1 month after last being seen. Her psoriasis is coming back. Last month she had just a little bit on the left elbow only. Today she has a minimal amount on the left elbow but a new plaque on the right. 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 Physical examination reveals a pleasant 38-year-old woman who has mild psoriasis recurring on both the left and right elbows, a less than 1 cm plaque at each site. Assessment plan: Psoriasis, recurrent on both elbows 1. Today Kenalog 5 mg/mL injected into the left and right elbows total of 2. Return to clinic in 6 months for recheck 3. We discussed other treatment options for the future but decided to stick with Kenalog injections. CC: Samir Carrillo DO documented in this encounter Plan of Treatment Upcoming Encounters Date Type Department Care Team (Late st Contact Info) Description 10/17/2024 3:30 PM EST Office Visit Dermatology at [place] [address] [facility] [place] [address] Perry Ocasio MD [address], [place] [address] documented as of this encounter Visit Diagnoses Diagnosis Psoriasis Other psoriasis documented in this encounter Care Teams Olap Developer Relationship Specialty Start Date End Date Unknown None PCP - General 09/21/23 documented as of this encounter
--- OUTSIDE RECORDS SUMMARY | 2024-10-10 14:45 | XMS_ITS | Encounter Summary ---
Author Organization [facility] Address [address] [place] [address] Care Team Providers Care Food Beverage Attendant Name Role Phone Unavailable Primary Care Provider Unavailabl e Encounter Details Date Type Department Care Team (Late st Contact Info) Description 08/18/2001 9:41 EST Hospital Encounter [facility] - Other [address] [place] [address] Shelly Alcocer, [facility] [address] [facility], [facility] [address] [place] [phone] Unknown, Provider, Social History Tobacco Use Types Packs/Day Years Used Date Smoking Tobacco: Never Assessed Interpersonal Safety Answer Date Record ed Physically Hurt Never 05/12/2020 Verbally Threaten Not on file 05/12/2020 Comments Unknown Sex and Gender Information Value Date Recorded Sex Assigned at Not on file Legal Sex Female 18:26 EST Gender Identity Not on file Sexual Orientation Not on file documented as of this encounter Plan of Treatment Not on file documented as of this encounter Procedures Procedure Name Priority Date/Time Associated Diagnosis Comments BACTERIAL CULTURE, URINE Routine 08/18/2001 10:17 EST GROUP B STREPTOCOCCUS SUSCEPTIBILITY Routine 08/18/2001 8:52 EST documented in this encounter Results * BACTERIAL CULTURE, URINE (08/18/2001 10:17 EST) Specimen Description Urine [facility] Result No growth [facility] Report Status Final [id number] [facility] 08/18/2001 10:1 7 EST 08/19/2001 10:17 EST us Shelly Alcocer NP, CNM MICROBIOLOGY - GENERAL ORDE RABLES Final Result Performing Organization Address [facility] Co de Phone Number [facility] [address] [place] [address] * GROUP B STREPTOCOCCUS SUSCEPTIBILITY (08/18/2001 8:52 EST) Specimen Description Vaginal and Rectal [facility] Result NO GROUP B BETA STREPTOCOCCI ISOLATED [facility] Report Status Final [id number] [facility] 08/18/2001 8:52 EST 08/19/2001 8:52 EST Shelly Alcocer NP, CNM HISTORICAL LAB FOR SQ LOAD Final Result Performing Organization Address [facility] Co de Phone Number [facility] [address] [place] [address] documented in this encounter Visit Diagnoses Not on filedocumented in this encounter
--- OUTSIDE RECORDS SUMMARY | 2024-10-10 14:45 | XMS_ITS | Encounter Summary ---
Author Organization [facility] Address [facility] [place] [address] Care Team Providers Care Business Office Manager Name Role Phone Deborah Rodriguez SALES AND SUPPORT CENTER AGENT Primary Care Provider [phone] Reason for Visit * Reason Comments Psoriasis Encounter Details Date Type Department Care Team (Late st Contact Info) Description 01/31/2015 3:15 PM EDT Office Visit Dermatology at [address] [place] [phone] Perry Ocasio MD [address] [facility], [place] [address] Psoriasis Discharge Disposition: Home Social History Tobacco Use Types Packs/Day Years Used Date Smoking Tobacco: Former Sex and Gender Information Value Date Recorded Sex Assigned at Not on file Gender Identity Not on file Sexual Orientation Not on file documented as of this encounter Patient Instructions * Patient Instructions* Sylvie Murphy LPN - 01/31/2015 3:16 PM EDT Images from the original note were not included. [facility] Psoriasis: After Your Visit Your Care Instructions Psoriasis (say kfh-EC-vc-cat) is a long-term skin problem that causes [...] still damp. This seals in moisture. Use yszo-qiz-[id number] products that your doctor suggests. These may [...] more? Visit our health information library at [email or web address] You can also view health information on [employer], your personal patient account. Log in or sign up today. Enter U759 in the search box to learn more about Psoriasis: After Your Visit. ?? [id number] [employer]. Care instructions adapted under license by [facility]. This care instruction is for use with your licensed healthcare professional. If you have questions about a medical condition or this instruction, always ask your healthcare professional. [employer] disclaims any warranty or liability for your use of this information. Content Version: 10.3.498811; Current as of: December 20, 2013 documented in this encounter Progress Notes * Perry Ocasio MD - 01/31/2015 3:32 PM EDT Problems: 1. Followup psoriasis. 2. Previously on methotrexate, August through September 2013; off it since then. Controlling psoriasis with intermittent Kenalog injections for elbow involvement. Lisha follows up and has done beautifully since her last visit in August 2014. She is just starting to get a few spots on the elbows again and would like to have a repeat injection. She states that she tried using some clobetasol cream a little bit, but it did not really help. Physical examination reveals a very minimal recurrence on the elbows only, but she does have one small patch on the left dorsal hand as well. These are erythematous, papulosquamous papules that are 3 or 4 mm in diameter, one or two on the left and one or two on the right elbow, and one 6-mm patch on the left dorsal hand. Assessment and Plan: Psoriasis, minimal recurrence, elbows bilaterally and left dorsal hand. a. After obtaining informed patient consent, the sites were injected with Kenalog 5 mg/mL; a total of 0.2 mL was injected. b. The patient tolerated it well. c. The patient knows she should be clear within just a week or two. d. Return to clinic p.r.n. for new lesions/concerns. Note: The patient in passing also notes soreness when she rests her right or left elbow on the automobile console. She does not otherwise have elbow pains with use of the elbow. She has no other joint complaints. I do not suspect psoriatic arthritis. Return to clinic p.r.n. COPY: Keyona Martinez M.D. documented in this encounter Plan of Treatment Upcoming Encounters Date Type Department Care Team (Late st Contact Info) Description 10/17/2024 3:30 PM EST Office Visit Dermatology at [place] [address] [facility] [place] [address] Perry Ocasio MD [address] [facility], [place] [address] documented as of this encounter Visit Diagnoses Diagnosis Psoriasis Other psoriasis documented in this encounter Care Teams Business Office Manager Relationship Specialty Start Date End Date Deborah Rodriguez, [facility] [address] [place] [address] PCP - General 09/12/13 04/05/17 documented as of this encounter
--- OUTSIDE RECORDS SUMMARY | 2024-10-10 14:45 | XMS_ITS | Encounter Summary ---
Author Organization [facility] [place] [address] Care Team Providers Care Branch Operations Manager Name Role Phone Jasmin Thomson DO Primary Care Provider Unava ilable Reason for Visit * Reason Comments Psoriasis Encounter Details Date Type Department Care Team ([facility] st Contact Info) Description 03/06/2022 4:15 PM EDT Office Visit Dermatology at [address] [place] [phone] Perry Ocasio MD [address], [place] [address] Psoriasis Social History Tobacco Use Types Packs/Day Years Used Date Smoking Tobacco: Former Smokeless Tobacco: Never Sex and Gender Information Value Date Recorded Sex Assigned at Not on file Gender Identity Not on file Sexual Orientation Not on file documented as of this encounter Progress Notes * Perry Ocasio MD - 03/06/2022 4:15 PM EDT Problem: 1. 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 ??Previously on methotrexate August - September 2013 3. ??Controlling her psoriasis with intermittent Kenalog injections for elbow involvement 4. ??Utilizing clindamycin 1% solution??prn??for adult acne ?? Lisha follows up for a 6-month check. She has been doing well. She is now 36. ?? Physical examination reveals a pleasant 36-year-old woman who very small minimal records of psoriasis on her elbows. She has not been using any topical does not desire to use any topical creams in between visits. ?? Assessment plan: Psoriasis, recurrent on elbows only 1. Today Kenalog 5 mg/mL injected into both sites total of 1.5 mL utilized 2. Return to clinic in 6 months for recheck 3. Patient continues to be quite pleased as am I with her control using this approach ?? CC: Jasmin Thomson DO documented in this encounter Plan of Treatment Upcoming Encounters Date Type Department Care Team (Late st Contact Info) Description 10/17/2024 3:30 PM EST Office Visit Dermatology at [place] [address] [place] [address] Perry Ocasio MD [address] [facility] [place] [address] documented as of this encounter Visit Diagnoses Diagnosis Psoriasis Other psoriasis documented in this encounter Care Teams Branch Operations Manager Relationship Specialty Start Date End Date Jasmin Thomson DO PCP - General Family Medicine 04/06/17 09/20/23 documented as of this encounter
--- OUTSIDE RECORDS SUMMARY | 2024-10-10 14:45 | XMS_ITS | Encounter Summary ---
Author Organization [facility] [place] [address] Care Team Providers Care Clinical Document Improvement Educator Name Role Phone Jasmin Thomson DO Primary Care Provider Unava ilable Reason for Visit * Reason Comments Psoriasis Encounter Details Date Type Department Care Team ([facility] st Contact Info) Description 03/11/2023 4:15 PM EDT Office Visit Dermatology at [address] [phone] Perry Ocasio MD [address] [facility] [address], [place] [address] Psoriasis Social History Tobacco Use Types Packs/Day Years Used Date Smoking Tobacco: Former Smokeless Tobacco: Never Sex and Gender Information Value Date Recorded Sex Assigned at Not on file Gender Identity Not on file Sexual Orientation Not on file documented as of this encounter Progress Notes * Perry Ocasio MD - 03/11/2023 4:15 PM EDT Problem: 1. 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 ??Previously on methotrexate August - September 2013 3. ??Controlling her psoriasis with intermittent Kenalog injections for elbow involvement 4. ??Utilizing clindamycin 1% solution??prn??for adult acne ?? Lisha follows up for a 6-month check. ??She has been doing well. ??She is now 37. 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 Physical examination reveals??a pleasant 37-year-old woman who??very small minimal papules of psoriasis on her elbows. ??She has not been using any topical does not desire to use any topical creams in between visits. She has what appears to be a patch of psoriasis that has developed within the former hemangioma of the right medial knee. ?? Assessment and plan: Psoriasis, recurrent on elbows only 1. ??Today Kenalog 5 mg/mL injected into both elbow sites, and also to the right medial knee. A total of??1.5 mL utilized 2. ??Return to clinic in 6 months for recheck 3. ??Patient continues to be quite pleased as am??I with her control using this approach ?? Hemangioma right medial knee. 1. Hemangioma responded to therapy last visit 2. This appears to have been complicated by development of mild psoriasis. This was injected today with Kenalog as well ?? CC: Jasmin Thomson DO documented in this encounter Plan of Treatment Upcoming Encounters Date Type Department Care Team (Late st Contact Info) Description 10/17/2024 3:30 PM EST Office Visit Dermatology at [place] [address] [place] [address] Perry Ocasio MD [address] [facility], [place] [address] documented as of this encounter Visit Diagnoses Diagnosis Psoriasis Other psoriasis documented in this encounter Care Teams Clinical Document Improvement Educator Relationship Specialty Start Date End Date Jasmin Thomson DO PCP - General Family Medicine 04/06/17 09/20/23 documented as of this encounter
--- OUTSIDE RECORDS SUMMARY | 2024-10-10 14:45 | XMS_ITS | Encounter Summary ---
Author Organization [facility] Address [address] [place] [address] Care Team Providers Care Rehab Office Coordinator Name Role Phone Unavailable Primary Care Provider Unavailabl e Encounter Details Date Type Department Care Team (Late st Contact Info) Description 07/01/2001 15:44 EDT Hospital Encounter [address] [address] Rosibel Miller MD [address] [place] [address], [address] [place] [phone] Discharge Disposition: Auto Discharge Social History Tobacco [...]
--- OUTSIDE RECORDS SUMMARY | 2024-10-10 14:45 | XMS_ITS | Encounter Summary ---
Author Organization [facility] Address [facility] [place] [address] Care Team Providers Care Land Leasing Information Clerk Name Role Phone Jasmin Thomson DO Primary Care Provider Unava ilable Encounter Details Date Type Department Care Team (Late st Contact Info) Description 08/29/2021 4:15 PM EST Office Visit Dermatology at [address] [place] [phone] Perry Ocasio MD [address], [place] [address] Psoriasis Social History Tobacco Use Types Packs/Day Years Used Date Smoking Tobacco: Former Smokeless Tobacco: Never Sex and Gender Information Value Date Recorded Sex Assigned at Not on file Gender Identity Not on file Sexual Orientation Not on file documented as of this encounter Progress Notes * Perry Ocasio MD - 08/29/2021 4:15 PM EST Problem: 1. 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 ??Previously on methotrexate August - September 2013 3. ??Controlling her psoriasis with intermittent Kenalog injections for elbow involvement 4. ??Utilizing clindamycin 1% solution??prn??for adult acne Lisha follows up for a 6-month check. She has been doing well. She is now 35. Physical examination reveals a pleasant 35-year-old woman who just on got back from 5 days on [place]. She has noted some recurrence of her psoriasis over the last couple of weeks after havingan clear until then. Assessment plan: Psoriasis, recurrent on elbows only 1. Today Kenalog 5 mg/mL injected into both sites total of 2.5 mL utilized 2. Return to clinic in 6 months for recheck 3. Patient continues to be quite pleased as am I with her control using this approach CC: Jasmin Thomson DO documented in this encounter Plan of Treatment Upcoming Encounters Date Type Department Care Team (Late st Contact Info) Description 10/17/2024 3:30 PM EST Office Visit Dermatology at [place] [address] [facility] [place] [address] Perry Ocasio MD [address] [facility], [place] [address] documented as of this encounter Visit Diagnoses Diagnosis Psoriasis Other psoriasis documented in this encounter Care Teams Land Leasing Information Clerk Relationship Specialty Start Date End Date Jasmin Thomson DO PCP - General Family Medicine 04/06/17 09/20/23 documented as of this encounter
--- OUTSIDE RECORDS SUMMARY | 2024-10-10 14:45 | XMS_ITS | Encounter Summary ---
Author Organization [facility] Address [address] [place] [address] Care Team Providers Care Tech Ed/Woodshop Teacher Name Role Phone Unavailable Primary Care Provider Unavailabl e Encounter Details Date Type Department Care Team (Late st Contact Info) Description 09/23/2004 Results Only [facility] [address] [place] [address] Abigail Vazquez MD [address] [facility] [address] [place] [address] Social History Tobacco Use Types [...] Priority Date/Time Associated Diagnosis Comments CYTOPATHOLOGY Routine 09/23/2004 0:00 EST documented in this encounter Results * CYTOPATHOLOGY (09/23/2004 0:00 EST) Pathology Report: CYTOPATHOLOGY REPORT Reports generated via electronic interface contain original data; however they are lacking the format of the original report. Caution should be taken when reading/interpreti ng unformatted reports. Name: ? WYATT ESPINOSA ? Accession #: ? [id number] : ? 1985 (Age: 19) ??F ?Collect Date: ? 09/23/2004 Location: ? [facility] ? Receive Date: ? 09/25/2004 Provider: ?ABIGAIL VAZQUEZ MD Copy to: ? Specimen/Source: ?ThinPrep Pap Test, Cervix/Endocervix Last Menstrual Period: ? 04/13 Menstrual/Pregnanc y Status: ? Previous Gynecologic Pathology: ? ASC-US Other: ? HPVA - HPV testing requested if ASC-US on the current ThinPrep Pap test. ? SPECIMEN ADEQUACY ? Satisfactory for Evaluation - transformation zone component present GENERAL CATEGORIZATION ? Negative for Intraepithelial Lesion or Malignancy ? Document reviewed and electronically signed by: ? GROVER Ledezma(ASCP) ? Report Date: ??09/30/2004 08:43 End of Report [facility] 09/23/2004 09/25/2004 us Abigail Vazquez MD PATHOLOGY ORDERABLES Final Resul t [facility] [address] [place] [address] documented in this encounter Visit Diagnoses Not on filedocumented in this encounter
--- OUTSIDE RECORDS SUMMARY | 2024-10-10 14:45 | XMS_ITS | Encounter Summary ---
Author Organization [facility] Address [facility] [place] [address] Care Team Providers Care Pizza Delivery Driver Name Role Phone Deborah Rodriguez APRN Primary Care Provider [phone] Reason for Visit * Reason Comments Follow-up Psoriasis Encounter Details Date Type Department Care Team (Late st Contact Info) Description 08/17/2014 4:30 PM EST Office Visit Dermatology at [place] [address] [facility] [place] [phone] Perry cOasio MD [address], [place] [address] Psoriasis (Primary Dx) Discharge Disposition: Home Social History Tobacco Use Types Packs/Day Years Used Date Smoking Tobacco: Unknown Sex and Gender Information Value Date Recorded Sex Assigned at Not on file Gender Identity Not on file Sexual Orientation Not on file documented as of this encounter Patient Instructions * Patient Instructions* Vannesa Morrison LPN - 08/17/2014 4:57 PM EST Images from the original note were not included. [facility] Psoriasis: After Your Visit Your Care Instructions Psoriasis (say irv-EQ-no-cat) is a long-term skin problem that causes [...] still damp. This seals in moisture. Use emec-glo-gpvrdph products that your doctor suggests. These may [...] more? Visit our health information library at [email or web address] You can also view health information on [employer], your personal patient account. Log in or sign up today. Enter [id number] in the search box to learn more about Psoriasis: After Your Visit. ?? [id number] [employer]. Care instructions adapted under license by [facility]. This care instruction is for use with your licensed healthcare professional. If you have questions about a medical condition or this instruction, always ask your healthcare professional. [employer] disclaims any warranty or liability for your use of this information. Content Version: 9.9.297361; Last Revised: May 16, 2013 documented in this encounter Progress Notes * Perry Ocasio MD - 08/17/2014 5:14 PM EST Problem: 1. Followup psoriasis. 2. On methotrexate, August through September 2013, now off since then. Lisha follows up and has done beautifully after interlesional Kenalog injection last visit, January 30, 2014. She states that she was clear for about six months until just recently it started to act up again. Physical examination reveals a pleasant 28-year-old woman who has small papules of psoriasis on both elbows. Otherwise she is clear. Assessment and Plan: Psoriasis, minimal recurrence, elbows only. a. Again I reassured patient she does not need to go back on methotrexate but that we can simply continue interlesional steroid injections. b. Today she was given 1 mL of 5 mg/mL Kenalog to the affected areas. c. The patient knows that this should clear her again within a week or two. d. I would be happy to see her back p.r.n. for new lesions/concerns. COPY: Justin MartinezRJordi documented in this encounter Plan of Treatment Upcoming Encounters Date Type Department Care Team (Late st [facility] Info) Description 10/17/2024 3:30 PM EST Office Visit Dermatology at [address] [address] Perry Ocasio MD [address] [facility], [place] [address] documented as of this encounter Visit Diagnoses Diagnosis Psoriasis- Primary Other psoriasis documented in this encounter Care Teams Pizza Delivery Driver Relationship Specialty Start Date End Date Deborah Rodriguez APRN [facility] [address] [place] [address] PCP - General 09/12/13 04/05/17 documented as of this encounter
--- OUTSIDE RECORDS SUMMARY | 2024-10-10 14:45 | XMS_ITS | Encounter Summary ---
Author Organization [facility] Address [address] [place] [address] Care Team Providers Care Functional Consultant Name Role Phone Unavailable Primary Care Provider Unavailabl e Encounter Details Date Type Department Care Team (Latest Contact Info) Description 09/06/2001 10:22 EST - 09/06/2001 11:59 EST Hospital Encounter [facility] [address] [place] [address] Bessy Perez MD Discharge Disposition: Auto Discharge [...] Procedure Name Priority Date/Time Associated Diagnosis Comments RAD US OB COMPLETE WITH DOPPLER Routine 09/06/2001 14:00 EST documented in this encounter Results * RAD US OB COMPLETE WITH DOPPLER (09/06/2001 14:00 EST) Anatomical Region Laterality Modality Other 09/06/2001 14:0 0 EST Narrative 07/24/2009 1:36 EDT FUR GROWTH A meza intrauterine gestation was identified in vertex presentation, with an anterior placental implantation. COMMENTS: Good movement observed. Doppler evaluation and GLEN calculation. dw Procedure Note Rosibel Miller MD - 07/24/2009 FUR GROWTH A meza intrauterine gestation was identified in vertex presentation, with an anterior placental implantation. COMMENTS: Good movement observed. Doppler evaluation and GLEN calculation. dw us Bessy Perez MD IMG US ORDERABLES Final Resu lt documented in this encounter Visit Diagnoses Not on filedocumented in this encounter
--- OUTSIDE RECORDS SUMMARY | 2024-10-10 14:45 | XMS_ITS | Encounter Summary ---
Author Organization [facility] Address [facility] [place] [address] Care Team Providers Care Team Cdl Driver Name Role Phone Jasmin Thomson DO Primary Care Provider Unava ilable Reason for Visit * Reason Comments Psoriasis Encounter Details Date Type Department Care Team ([facility] st Contact Info) Description 09/10/2022 4:15 PM EST Office Visit Dermatology at [address] [place] [phone] Perry Ocasio MD [address], [place] [address] Psoriasis Social History Tobacco Use Types Packs/Day Years Used Date Smoking Tobacco: Former Smokeless Tobacco: Never Sex and Gender Information Value Date Recorded Sex Assigned at Not on file Gender Identity Not on file Sexual Orientation Not on file documented as of this encounter Progress Notes * Perry Ocasio MD - 09/10/2022 4:15 PM EST Problem: 1. 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 ??Previously on methotrexate August - September 2013 3. ??Controlling her psoriasis with intermittent Kenalog injections for elbow involvement 4. ??Utilizing clindamycin 1% solution??prn??for adult acne ?? Lisha follows up for a 6-month check. ??She has been doing well. ??She is now 37. She is looking forward to leaving tomorrow on a trip to [place] with her daughter. ?? Physical examination reveals??a pleasant 37-year-old woman who very small minimal papules of psoriasis on her elbows. She has not been using any topical does not desire to use any topical creams in between visits. She has what appears to be in a hemangioma of the right medial knee. ?? Assessment and plan: Psoriasis, recurrent on elbows only 1. ??Today Kenalog 5 mg/mL injected into both sites total of 1.5 mL utilized 2. ??Return to clinic in 6 months for recheck 3. ??Patient continues to be quite pleased as am??I with her control using this approach Hemangioma right medial knee. 1. Patient reassured about this lesion today. No treatment necessary ?? CC: Jasmin Thomson DO documented in this encounter Plan of Treatment Upcoming Encounters Date Type Department Care Team (Late st Contact Info) Description 10/17/2024 3:30 PM EST Office Visit Dermatology at [place] [address] [place] [address] Perry Ocasio MD [address] [facility], [place] [address] documented as of this encounter Visit Diagnoses Diagnosis Psoriasis Other psoriasis documented in this encounter Care Teams Team Cdl Driver Relationship Specialty Start Date End Date Jasmin Thomson DO PCP - General Family Medicine 04/06/17 09/20/23 documented as of this encounter
--- OUTSIDE RECORDS SUMMARY | 2024-10-10 14:45 | XMS_ITS | Encounter Summary ---
Author Organization [facility] [place] [address] Care Team Providers Care Trailer Truck Driver Name Role Phone Jasmin Thomson DO Primary Care Provider Unava ilable Reason for Visit * Reason Comments Follow-up Skin Check Encounter Details Date Type Department Care Team ([facility] st Contact Info) Description 07/03/2019 3:30 PM EDT Office Visit Dermatology at [address] [place] [phone] Perry Ocasio MD [address] [facility], [place] [address] Psoriasis; Acne vulgaris Social History Tobacco Use Types Packs/Day Years Used Date Smoking Tobacco: Former Smokeless Tobacco: Never Sex and Gender Information Value Date Recorded Sex Assigned at Not on file Gender Identity Not on file Sexual Orientation Not on file documented as of this encounter Progress Notes * Perry Ocasio MD - 07/03/2019 3:30 PM EDT Problem: 1. 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 ??Previously on methotrexate August - September 2013 3. ??Controlling her psoriasis with intermittent Kenalog injections for elbow involvement 4. ??Utilizing clindamycin 1% solution prn for adult acne Lisha follows up and is doing well. 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 She has started to develop psoriasis again and she would appreciate another set of steroid injections. She is using clindamycin solution as needed for adult acne that worked well for her. Examination reveals a pleasant 33-year-old woman with a small plaques of psoriasis developing on both elbows otherwise she is clear without stigmata of psoriasis. She appears to have 2 small warts developing over her right thumb dorsally. She does not desire to have these treated. Assessment plan: Psoriasis, mild recurrence, limited to bilateral elbows only 1. Pulses today were injected with Kenalog 5 mg/mL a total of 1.5 MLS injected between both sites 2. Patient tolerated well 3. Return to clinic in another 6 months for repeat check 4. Patient does not feel that halobetasol cream works very well for her for this. Adult acne vulgaris 1. Continue clindamycin 1% solution applying daily twice daily as needed for adult acne. 2. We will be happy to give her refills as needed. Verruca vulgaris, dorsal right thumb 1. No treatment desired but discussed the option of liquid nitrogen CC: Jasmin Thomson DO documented in this encounter Plan of Treatment Upcoming Encounters Date Type Department Care Team (Late st Contact Info) Description 10/17/2024 3:30 PM EST Office Visit Dermatology at [place] [address] [facility] [place] [address] Perry Ocasio MD [address] [facility], [place] [address] documented as of this encounter Visit Diagnoses Diagnosis Psoriasis Other psoriasis Acne vulgaris Other acne documented in this encounter Care Teams Trailer Truck Driver Relationship Specialty Start Date End Date Jasmin Thomson DO PCP - General Family Medicine 04/06/17 09/20/23 documented as of this encounter
--- OUTSIDE RECORDS SUMMARY | 2024-10-10 14:45 | XMS_ITS | Encounter Summary ---
Author Organization [facility] [place] [address] Care Team Providers Care Principal Systems Architect Name Role Phone Unknown Primary Care Provider Unavailabl e Encounter Details Date Type Department Care Team (Latest Contact Info) Description 10/28/2023 Travel Social History Tobacco Use Types Packs/Day [...] 3:30 PM EST Office Visit Dermatology at [place] [address] [facility] [place] [phone] Perry Ocasio MD [address], [place] [address] documented as of this encounter Visit Diagnoses Not on filedocumented in this encounter Care Teams Principal Systems Architect Relationship Specialty Start Date End Date Unknown None PCP - General 09/21/23 documented as of this encounter
--- OUTSIDE RECORDS SUMMARY | 2024-10-10 14:45 | XMS_ITS | Encounter Summary ---
Author Organization [facility] Address [address] [place] [address] Care Team Providers Care Crayon Sorting Machine Feeder Name Role Phone Md SELENA Heart Primary Care Provider Rennya ble Encounter Details Date Type Department Care Team (Late st Contact Info) Description 09/13/2016 Results Only [facility] [phone] Radha Aguirre MD [address] [place] [address] Social History Tobacco Use Types Packs/Day Years [...] Procedure Name Priority Date/Time Associated Diagnosis Comments SURGICAL PATHOLOGY Routine 09/13/2016 13 :54 EST documented in this encounter Results * SURGICAL PATHOLOGY (09/13/2016 13:54 EST) Pathology Report: SURGICAL PATHOLOGY REPORT Reports generated via electronic interface contain original data; however they are lacking the format of the original report. Caution should be taken when reading/interpret ing unformatted reports. Name: ? WYATT ESPINOSA ? Accession #: ? [id number] ? : ? 1985 (Age: 31) ??F ? Collect Date: ? 09/13/2016 ? Location: ? [facility] ? Receive Date: ? 09/14/2016 ? Provider: RADHA AGUIRRE MD Copy to: RADHA AGUIRRE MD ? Final Pathologic Diagnosis: A. FALLOPIAN TUBE, LEFT, STERILIZATION: - Portion of fallopian tube with full cross-section represented. B. FALLOPIAN TUBE, RIGHT, STERILIZATION: - Portion of fallopian tube with full cross-section represented. Document reviewed and electronically signed by: JEANNINE BOYD MD Report ??Date: 09/16/2016 17:25 By the signature above, the attending physician certifies that he/she has personally conducted a gross and/or microscopic examination of the described specimens and rendered or confirmed the above diagnosis. Specimen(s) Received: A. ??Segment L fallopian tube B. ??Segment R fallopian tube Clinical History: Desires sterilization Gross Description: A. ?Received in formalin labelled with proper patient identification (initials B, A) and segment L fallopian tube is a 0.8 cm in length portion of fallopian tube averaging 0.6 cm in diameter. The serosa is without adhesions or excrescences. Sections show an intact wall and pinpoint lumen. A union representative central section is submitted in A1. B. ? Received in formalin labelled with proper patient identification (initials B, A) and segment R fallopian tube is a 1.5 cm in length portion of fallopian tube averaging 0.6 cm in diameter. The serosa is without adhesions or excrescences. Sections show an intact wall and pinpoint lumen. A union representative central section is submitted in B1. FADUMO Osei (ASCP) 09/15/2016 2:58 PM End of Report [facility] 09/13/2016 13:5 4 EST 09/14/2016 13:54 EST us Radha Aguirre MD PATHOLOGY ORDERABLES Final Result [facility] [address] [place] [address] documented in this encounter Visit Diagnoses Not on filedocumented in this encounter Care Teams Crayon Sorting Machine Feeder Relationship Specialty Start Date End Date Md Heart MD PCP - General 08/21/15 documented as of this encounter
--- OUTSIDE RECORDS SUMMARY | 2024-10-10 14:45 | XMS_ITS | Referral Summary ---
Author Organization [facility] Address [address] [place] [address] Care Team Providers Care Mri Specialist Name Role Phone Md SELENA Heart Primary Care Provider Unavaila ble Social History Tobacco Use Types Packs/Day Years Used Date Smoking Tobacco: Never Assessed Interpersonal Safety Answer Date Record ed Physically Hurt Never 05/12/2020 Verbally Threaten Not on file 05/12/2020 Comments Unknown Sex and Gender Information Value Date Recorded Sex Assigned at Not on file Legal Sex Female 18:26 EST Gender Identity Not on file Sexual Orientation Not on file Plan of Treatment Not on file Insurance MEDICAID [place] Care Teams Mri Specialist Relationship Specialty Start Date End Date Md Heart MD PCP - General 08/21/15
--- OUTSIDE RECORDS SUMMARY | 2024-10-10 14:45 | XMS_ITS | Encounter Summary ---
Author Organization [facility] [place] [address] Care Team Providers Care Caustic Mixer Name Role Phone Jasmin Thomson DO Primary Care Provider Unava ilable Encounter Details Date Type Department Care Team (Latest Contact Info) Description 03/11/2023 Travel Social History Tobacco Use Types Packs/Day [...] 3:30 PM EST Office Visit Dermatology at [place] [address] [place] [phone] Perry Ocasio MD [address], [address] [address] documented as of this encounter Visit Diagnoses Not on filedocumented in this encounter Care Teams Caustic Mixer Relationship Specialty Start Date End Date Jasmin Thomson DO PCP - General Family Medicine 04/06/17 09/20/23 documented as of this encounter
--- OUTSIDE RECORDS SUMMARY | 2024-10-10 14:45 | XMS_ITS | Encounter Summary ---
Author Organization [facility] [place] [address] Care Team Providers Care Fluid Designer Name Role Phone Unknown Primary Care Provider Unavailabl e Reason for Visit * Reason Comments Follow-up Psoriasis Encounter Details Date Type Department Care Team (Late st Contact Info) Description 03/17/2024 8:30 AM EDT Office Visit Dermatology at [address] [place] [address] Perry Ocasio MD [address], [place] [address] Psoriasis Social History Tobacco Use Types Packs/Day Years Used Date Smoking Tobacco: Former Smokeless Tobacco: Never Sex and Gender Information Value Date Recorded Sex Assigned at Not on file Gender Identity Not on file Sexual Orientation Not on file documented as of this encounter Progress Notes * Perry Ocasio MD - 03/17/2024 8:30 AM EDT Problem: 1. Follow-up psoriasis recurrent on elbows 2. Previously on methotrexate August - September 2013 3. Controlling her psoriasis with intermittent Kenalog injections for elbow involvement 4. Utilizing clindamycin 1% solution prn for adult acne Lisha follows up after last being seen in October. Her psoriasis has coming back her left elbow only. This came back relatively quickly after her last visit in October. 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 Physical examination reveals a pleasant 38-year-old woman who has 3 small plaques psoriasis recurring on the left elbows, no involvement yet on the right. Assessment plan: Psoriasis, recurrent on the left elbow 1. Today Kenalog 5 mg/mL injected into the left and a small amount into the right elbow, total of 2.5 mL injected 2. Return to clinic in 6 months for recheck CC: Samir Carrillo DO documented in this encounter Plan of Treatment Upcoming Encounters Date Type Department Care Team (Late st Contact Info) Description 10/17/2024 3:30 PM EST Office Visit Dermatology at [place] [address] [facility] [place] [address] Perry Ocasio MD [address] [facility], [place] [address] documented as of this encounter Visit Diagnoses Diagnosis Psoriasis Other psoriasis documented in this encounter Care Teams Fluid Designer Relationship Specialty Start Date End Date Unknown None PCP - General 09/21/23 documented as of this encounter
--- OUTSIDE RECORDS SUMMARY | 2024-10-10 14:45 | XMS_ITS | Encounter Summary ---
Author Organization [facility] Address [address] [place] [address] Care Team Providers Care Civil Preparedness Coordinator Name Role Phone Unavailable Primary Care Provider Unavailabl e Encounter Details Date Type Department Care Team (Late st Contact Info) Description 04/09/2005 Results Only [facility] - Maple conversion [address] [place] [address] Abigail Vazquez MD [address] [facility] [address] [place] [address] Social History Tobacco Use Types [...] Priority Date/Time Associated Diagnosis Comments CYTOPATHOLOGY Routine 04/09/2005 0:00 EDT documented in this encounter Results * CYTOPATHOLOGY (04/09/2005 0:00 EDT) Pathology Report: CYTOPATHOLOGY REPORT Reports generated via electronic interface contain original data; however they are lacking the format of the original report. Caution should be taken when reading/interpreti ng unformatted reports. Name: ? ESPINOSA WYATT Frank ? Accession #: ? [id number] : ? 1985 (Age: 19) ??F ?Collect Date: ? 04/09/2005 Location: ? [facility] ? Receive Date: ? 04/11/2005 Provider: ?ABIGAIL VAZQUEZ MD Copy to: ? Specimen/Source: ?ThinPrep Pap Test, Cervix/Endocervix, processed on [facility] ThinPrep Imaging System, with manual evaluation Last Menstrual Period: ? Menstrual/Pregnanc y Status: ? Post Other: ? HPVA - HPV testing requested if ASC-US on the current ThinPrep Pap test. ? SPECIMEN ADEQUACY ? Satisfactory for Evaluation - transformation zone component present GENERAL CATEGORIZATION ? Negative for Intraepithelial Lesion or Malignancy ? Document reviewed and electronically signed by: ? Camille Singer, SCT(ASCP) ? Report Date: ??04/22/2005 09:36 End of Report [facility] 04/09/2005 04/11/2005 us Abigail Vazquez MD PATHOLOGY ORDERABLES Final Resul t [facility] [address] [place] [address] documented in this encounter Visit Diagnoses Not on filedocumented in this encounter
--- OUTSIDE RECORDS SUMMARY | 2024-10-10 14:45 | XMS_ITS | Encounter Summary ---
Author Organization [facility] Address [address] [place] [address] Care Team Providers Care Grain Merchandiser Name Role Phone Unavailable Primary Care Provider Unavailabl e Encounter Details Date Type Department Care Team (Latest Contact Info) Description 08/24/2001 9:21 EST - 08/24/2001 11:59 EST Hospital Encounter [facility] [address] [place] [address] Bessy Perez MD Discharge Disposition: Auto Discharge [...] Procedure Name Priority Date/Time Associated Diagnosis Comments [facility] OBSTETRICAL COMPLETE Routine 08/24/2001 9:45 EST documented in this encounter Results * RAD OBSTETRICAL COMPLETE (08/24/2001 9:45 EST) Anatomical Region Laterality Modality Other 08/24/2001 9:45 EST Narrative 2009 3:34 EST POOR GROWTH A meza intrauterine gestation was identified in vertex presentation, with an anterior placenta implantation. ANATOMY SURVEY: No anomalies observed - abd wall, abd cavity, stomach fluid, bladder fluid, right kidney, left kidney BIOMETRIC PARAMETERS: BPD 8.6 cm = 34+7 wk; HC 29.2 cm = 32+2 wk; FL 6.2 cm = 32+0 wk; AC 27.2 = 31+3 wk Estimated gestational age by ultrasound = 31+5 wk EFW = 1863 grams ADDITIONAL BIOMETRY: FL/HC = 0/21 COMMENTS: Doppler studies are WNL. weight is less than the 10%. She was scheduled for NSTs biweekly. Cnm's notified of results. 08/30/01 /elizabeth Procedure Note Milo Hopkins MD - 2009 POOR GROWTH A meza intrauterine gestation was identified in vertex presentation, with an anterior placenta implantation. ANATOMY SURVEY: No anomalies observed - abd wall, abd cavity, stomach fluid, bladder fluid, right kidney, left kidney BIOMETRIC PARAMETERS: BPD 8.6 cm = 34+7 wk; HC 29.2 cm = 32+2 wk; FL 6.2 cm = 32+0 wk; AC 27.2 = 31+3 wk Estimated gestational age by ultrasound = 31+5 wk EFW = 1863 grams ADDITIONAL BIOMETRY: FL/HC = 0/21 COMMENTS: Doppler studies are WNL. weight is less than the 10%. She was scheduled for NSTs biweekly. Cnm's notified of results. 08/30/01 /elizabeth us Shelly Alcocer NP, CNM IMG US ORDERABLES Final Res ult documented in this encounter Visit Diagnoses Not on filedocumented in this encounter
--- OUTSIDE RECORDS SUMMARY | 2024-10-10 14:45 | XMS_ITS | Encounter Summary ---
Author Organization [facility] Address [address] [place] [address] Care Team Providers Care Motor Checker Name Role Phone Md SELENA Heart Primary Care Provider Unavaila ble Encounter Details Date Type Department Care Team (Latest Contact Info) Description 09/11/2016 15:57 EST - 09/11/2016 23:59 EST Hospital Encounter [address] [address] Unknown, ProviderMD Discharge Disposition: Home or Self Care Social History Tobacco Use Types Packs/Day Years Used Date Smoking Tobacco: Never Assessed Comments Unknown Sex and Gender Information Value Date Recorded Sex Assigned at Not on file Legal Sex Female 18:26 EST Gender Identity Not on file Sexual Orientation Not on file documented as of this encounter Discharge Disposition Disposition Code Departure Means Destination Home or Self Penitentiary documented in this encounter Plan of Treatment Not on file documented as of this encounter Visit Diagnoses Not on filedocumented in this encounter Care Teams Motor Checker Relationship Specialty Start Date End Date Md Heart MD PCP - General 08/21/15 documented as of this encounter
--- OUTSIDE RECORDS SUMMARY | 2024-10-10 14:45 | XMS_ITS | Encounter Summary ---
Author Organization [facility] [place] [address] Care Team Providers Care Historical Guide Name Role Phone Jasmin Thomson DO Primary Care Provider Unava ilable Encounter Details Date Type Department Care Team (Late st Contact Info) Description 06/26/2021 Telephone [place] [address] Vianey Liu Social History Tobacco Use Types Packs/Day Years Used Date Smoking Tobacco: Former Smokeless Tobacco: Never Sex and Gender Information Value Date Recorded Sex Assigned at Not on file Gender Identity Not on file Sexual Orientation Not on file documented as of this encounter Miscellaneous Notes * Telephone Encounter - Vianey Liu - 06/26/2021 2:59 PM EDT I contacted [facility]NT office. They confirm patient was seen once in 2019 only. They will forward their office notes via fax. I contacted patient to verify that was the only place she was seen. She also confirms no imaging has been completed. * Telephone Encounter - Vianey Liu - 06/26/2021 2:59 PM EDT ----- Message from Jasmin Perez RN sent at 06/26/2021 1:16 PM EDT ----- Regarding: Records In reviewing this referral it looks like she has previously seen [facility], about 2 years ago. We don't have these records, could we see if we can get these sent over, along with any imaging theymay have ordered? Thanks Lory documented in this encounter Plan of Treatment Upcoming Encounters Date Type Department Care Team (Late st Contact Info) Description 10/17/2024 3:30 PM EST Office Visit Dermatology at [place] [address] [facility] [place] [phone] Perry Ocasio MD [address], [place] [address] documented as of this encounter Visit Diagnoses Not on filedocumented in this encounter Care Teams Historical Guide Relationship Specialty Start Date End Date Jasmin Thomson DO PCP - General Family Medicine 04/06/17 09/20/23 documented as of this encounter
--- OUTSIDE RECORDS SUMMARY | 2024-10-10 14:45 | XMS_ITS | Encounter Summary ---
Author Organization [facility] [place] [place] [address] Care Team Providers Care Purchasing Assistant Name Role Phone Jasmin Thomson DO Primary Care Provider Unava ilable Encounter Details Date Type Department Care Team (Late st Contact Info) Description 06/10/2018 Refill Dermatology at [address] [phone] Cait Fernandes LPN Social History Tobacco Use Types Packs/Day Years [...] 3:30 PM EST Office Visit Dermatology at [address] [phone] Perry Ocasio MD [address] [place] [address], CASH A DERMATOLOGY [place], [place] [id number] documented as of this encounter Visit Diagnoses Not on filedocumented in this encounter Care Teams Purchasing Assistant Relationship Specialty Start Date End Date Jasmin Thomson DO PCP - General Family Medicine 04/06/17 09/20/23 documented as of this encounter
--- OUTSIDE RECORDS SUMMARY | 2024-10-10 14:45 | XMS_ITS | Encounter Summary ---
Author Organization [facility] Address [address] [place] [address] Care Team Providers Care Whale Fisherman Name Role Phone Unavailable Primary Care Provider Unavailabl e Encounter Details Date Type Department Care Team (Latest Contact Info) Description 09/15/2001 20:22 EST Hospital Encounter [facility] Emergency Department - [facility] [address] [place], [place] [id number] Emergency, Default, MD Discharge Disposition: Home or Self Care Social [...] Code Departure Means Destination Home or Self Care documented in this encounter Plan of Treatment Not on file documented as of this encounter Procedures Procedure Name Priority Date/Time Associated Diagnosis Comments BACTERIAL CULTURE, URINE Routine 09/15/2001 22:13 EST HEMAGRAM & DIFF Routine 09/15/2001 21:31 EST C REACTIVE PROTEIN Routine 09/15/2001 21 :31 EST BACTERIAL CULTURE, BLOOD Routine 09/15/2001 21:30 EST BACTERIAL CULTURE, BLOOD Routine 09/15/2001 21:30 EST documented in this encounter Results * BACTERIAL CULTURE, URINE (09/15/2001 22:13 EST) Specimen Description Urine [facility] Result No growth [facility] Report Status Final [id number] [facility] 09/15/2001 22:1 3 EST 09/15/2001 22:13 EST Default Emergency MD MICROBIOLOGY - GENERAL ORDE RABLES Final Result Performing Organization Address [facility] Co de Phone Number [facility] [address] [place] [address] * C-REACTIVE PROTEIN (09/15/2001 21:31 EST) C-Reactive Protein 4.1 mg/dl [facility] 09/15/2001 21:3 1 EST 09/15/2001 21:31 EST us Default Emergency CHEMISTRY & BLOOD GAS ORDER DARLENE Final Result Performing Organization Address [facility] de Phone Number [facility] [address] [place] [address] * (ABNORMAL) HEMAGRAM & DIFF (09/15/2001 21:31 EST) WBC 15.96(H) 4.6 - 11.2 K/cmm [facility] RBC 4.45 4.10 - 5.10 M/cmm [facility] Hemoglobin 13.8 12.0 - 16.0 gm/dl [facility] HCT 39.8 36.0 - 46.0 % [facility] MCV 89 78 - 102 fl [facility] MCH 31.0 pg [facility] MCHC 34.7 gm/dl [facility] PLT 372(H) 156 - 312 K/cmm [facility] RDW-CV 12.6 % [facility] Neutrophils 77 % [facility] Lymphocytes 18 % [facility] Monocytes 3 % [facility] Eosinophils 1 % [facility] Basophils 1 % [facility] ABS Neutrophils 12.29 K/cmm [facility] ABS Lymphs 2.87 K/cmm [facility] ABS Monocytes 0.48 K/cmm KANDY ER [facility] ABS Eosinophils 0.16 K/cmm FLET JAZMINE [facility] ABS Basophils 0.16 K/cmm [facility]LETCH ER [facility] RBC Morphology Normal [facility] HER [facility] Type of Diff: Manual [facility] 09/15/2001 21:3 1 EST 09/15/2001 21:31 EST us Default Emergency HISTORICAL LAB FOR SQ LOAD Final Result Performing Organization Address [facility] Co de Phone Number [facility] [address] [place] [address] * BACTERIAL CULTURE, BLOOD (09/15/2001 21:30 EST) Specimen Description Blood Right Hand [facility] Result No growth [facility] Report Status Final [id number] [facility] 09/15/2001 21:3 0 EST 09/15/2001 21:40 EST us Default Emergency MICROBIOLOGY - GENERAL MIKY CRUZ Final Result Performing Organization Address [facility] Co de Phone Number [facility] [address] [place] [address] * BACTERIAL CULTURE, BLOOD (09/15/2001 21:30 EST) Specimen Description Blood Right FA [facility] Result No growth [facility] Report Status Final [id number] [facility] 09/15/2001 21:3 0 EST 09/15/2001 21:40 EST us Default Emergency MICROBIOLOGY - GENERAL MIKY CRUZ Final Result Performing Organization Address [facility] Co de Phone Number [facility] [address] [place] [address] documented in this encounter Visit Diagnoses Not on filedocumented in this encounter
--- OUTSIDE RECORDS SUMMARY | 2024-10-10 14:45 | XMS_ITS | Encounter Summary ---
Author Organization [facility] Address [address] [place] [address] Care Team Providers Care Order Checker Packer Processer Name Role Phone Unavailable Primary Care Provider Unavailabl e Encounter Details Date Type Department Care Team (Latest Contact Info) Description 08/04/2001 16:09 EDT Hospital Encounter [facility] [place] [address] [place] [address] Bessy Perez MD Discharge Disposition: Auto Discharge [...]
--- OUTSIDE RECORDS SUMMARY | 2024-10-10 14:45 | XMS_ITS | Encounter Summary ---
Author Organization [facility] Address [facility] [place] [address] Care Team Providers Care Water Hauler Name Role Phone Jasmin Thomson DO Primary Care Provider Unava ilable Reason for Visit * Reason Comments Psoriasis Encounter Details Date Type Department Care Team ([facility] st Contact Info) Description 06/07/2020 4:15 PM EDT Office Visit Dermatology at [address] [place] [phone] Perry Ocasio MD [address], [place] [address] Psoriasis; Acne vulgaris Social History Tobacco Use Types Packs/Day Years Used Date Smoking Tobacco: Former Smokeless Tobacco: Never Sex and Gender Information Value Date Recorded Sex Assigned at Not on file Gender Identity Not on file Sexual Orientation Not on file documented as of this encounter Progress Notes * Perry Ocasio MD - 06/07/2020 4:15 PM EDT Problem: 1. 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 ??Previously on methotrexate August - September 2013 3. ??Controlling her psoriasis with intermittent Kenalog injections for elbow involvement 4. ??Utilizing clindamycin 1% solution??prn??for adult acne Lisha follows up and has recurrence of rash is worse on her left elbow than her right. Also she has some cutaneous atrophy on the buttock from her last injection there. She recently got back from a trip to [facility]. Unfortunately she arrived just before the pandemic and so when she was there and the pain pandemic emerge, many of the outdoor activities were closed. She is now working at the [employer] in [place]. Physical examination reveals a pleasant 34-year-old woman who has two quarter sized plaques of psoriasis on the left elbow and 1 nickel size plaque on the right elbow. Assessment and plan: Psoriasis 1. Today Kenalog 5 mg/mL was injected to both sites a total of 4 mils injected between both sides 2. Recommend that when the psoriasis starts to reactivate that she should use her home clobetasol cream to slow down recurrence and prevent a flaring. 3. Return to clinic in 6 months for repeat check. Atrophy buttock, from intralesional Kenalog injection 1. Reassured patient that I would expect this will gradually normalize again 2. No injection given at the site today 3. No recurrent psoriasis at this site. Cc: Jasmin Thomson DO documented in this encounter Plan of Treatment Upcoming Encounters Date Type Department Care Team (Late st Contact Info) Description 10/17/2024 3:30 PM EST Office Visit Dermatology at [place] [address] [facility] [place] [address] Perry Ocasio MD [address] [facility], [place] [address] documented as of this encounter Visit Diagnoses Diagnosis Psoriasis Other psoriasis Acne vulgaris Other acne documented in this encounter Care Teams Water Hauler Relationship Specialty Start Date End Date Jasmin Thomson DO PCP - General Family Medicine 04/06/17 09/20/23 documented as of this encounter
--- OUTSIDE RECORDS SUMMARY | 2024-10-10 14:45 | XMS_ITS | Encounter Summary ---
Author Organization [facility] Address [address] [place] [address] Care Team Providers Care Manager Property Name Role Phone Md SELENA Heart Primary Care Provider Rennya ble Encounter Details Date Type Department Care Team (Late st Contact Info) Description 06/08/2021 Lab Requisition [facility] Pathology & Laboratory Medicine - [address] [address] Outr Resulting Lab, Provider Social History Tobacco Use Types Packs/Day Years [...] Procedure Name Priority Date/Time Associated Diagnosis Comments ZZCOVID-19 TEST [facility] PCR Today 06/07/2021 10:00 EDT COVID-19 TESTING Routine 06/07/2021 10:0 0 EDT documented in this encounter Results * COVID-19 TEST [facility] PCR (06/07/2021 10:00 EDT) Swab ENTIRE NASOPHARYNX / Unknown 06/07/2021 10:00 EDT 06/08/2021 15:51 EDT us Provider Outr Resulting Lab MICROBIOLOGY - GENER AL ORDERABLES Final Result Performing Organization Address [facility]/ZIP Co de Phone Number [facility] [address] [place] [address] * COVID-19 TESTING (06/07/2021 10:00 EDT) COVID-19 rt-PCR Result Negative Negative 06/09/2021 13:01 EDT [facility] Comment: This test has not been FDA cleared or approved. This test has been authorized by FDA under an EUA for use by authorized laboratories. This test has been authorized only for detection of nucleic acid from 2019-nCoV, not for any other viruses or pathogens. This test is only authorized for the duration of the declaration that circumstances exist justifying the authorization of emergency use of in vitro diagnostic tests for detection and/or diagnosis of 2019-nCoV under section 564(b)(1) of Act, 21 U.S.C ?? 360bbb-3(b) (1), unless the authorization is terminated or revoked sooner. Negative results do not preclude 2019-nCoV infection and should not be used as the sole basis for treatment or other patient management decisions. Negative results must be combined with clinical observations, patient history, and epidemiological information. Testing was performed using the cora SARS-CoV-2 assay ([employer] on the Cora 6800 System Performing Lab Cora [address] [facility] 06/09/2021 13:01 EDT [facility] Swab 06/07/2021 10:0 0 EDT 06/08/2021 15:51 EDT us Provider Outr Resulting Lab MICROBIOLOGY - GENER AL ORDERABLES Final Result Performing Organization Address [facility] Co de Phone Number [facility] [address] [place] [address] documented in this encounter Visit Diagnoses Not on filedocumented in this encounter Care Teams Manager Property Relationship Specialty Start Date End Date Md Heart MD PCP - General 08/21/15 documented as of this encounter
--- OUTSIDE RECORDS SUMMARY | 2024-10-10 14:45 | XMS_ITS | Encounter Summary ---
Author Organization [facility] [place] [address] Care Team Providers Care Marketing Director Name Role Phone Unknown Primary Care Provider Unavailabl e Encounter Details Date Type Department Care Team (Latest Contact Info) Description 03/17/2024 Travel Social History Tobacco Use Types Packs/Day [...] 3:30 PM EST Office Visit Dermatology at [place] [address] [facility] [place] [phone] Perry Ocasio MD [address], [place] [address] documented as of this encounter Visit Diagnoses Not on filedocumented in this encounter Care Teams Marketing Director Relationship Specialty Start Date End Date Unknown None PCP - General 09/21/23 documented as of this encounter
--- OUTSIDE RECORDS SUMMARY | 2024-10-10 14:45 | XMS_ITS | Encounter Summary ---
Author Organization [facility] Address [address] [place] [address] Care Team Providers Care Wire Communications Engineer Name Role Phone Unavailable Primary Care Provider Unavailabl e Encounter Details Date Type Department Care Team (Late st Contact Info) Description 11/28/2002 Results Only [facility] - Maple conversion [address] [place] [address] Cecille Buenrostro MD [address] [place] [address] Social History Tobacco Use Types [...] Priority Date/Time Associated Diagnosis Comments CYTOPATHOLOGY Routine 11/28/2002 0:00 EST documented in this encounter Results * CYTOPATHOLOGY (11/28/2002 0:00 EST) Pathology Report: CYTOPATHOLOGY REPORT Reports generated via electronic interface contain original data; however they are lacking the format of the original report. Caution should be taken when reading/interpreti ng unformatted reports. Name: ? ESPINOSA WYATT Frank ? Accession #: ? [id number] : ? 1985 (Age: 17) ??F ?Collect Date: ? 11/28/2002 Location: ? [facility] ? Receive Date: ? 11/30/2002 Provider: ?CECILLE BUENROSTRO MD Copy to: ? Specimen/Source: ?ThinPrep Pap Test, Cervix/Endocervix Last Menstrual Period: ? 07/11/02 Menstrual/Pregnanc y Status: ? Other: ? DHPV - HPV testing requested if ASCUS/MARGARITA on the current ThinPrep Pap test. ? SPECIMEN ADEQUACY ? Satisfactory for Evaluation - transformation zone component present GENERAL CATEGORIZATION ? Negative for Intraepithelial Lesion or Malignancy ? Document reviewed and electronically signed by: ? GROVER Johnston(ASCP) ? Report Date: ??12/01/2002 12:48 End of Report [facility] 11/28/2002 11/30/2002 us Cecille Buenrostro MD PATHOLOGY ORDERABLES Final Resul t [facility] [address] [place] [address] documented in this encounter Visit Diagnoses Not on filedocumented in this encounter
--- OUTSIDE RECORDS SUMMARY | 2024-10-10 14:45 | XMS_ITS | Encounter Summary ---
Author Organization [facility] [place] [address] Care Team Providers Care Safety Aide Name Role Phone Deborah Rodriguez SAND SCREENER Primary Care Provider [phone] Reason for Visit * Reason Comments Psoriasis Encounter Details Date Type Department Care Team (Late st Contact Info) Description 01/30/2014 2:15 PM EDT Office Visit Dermatology at [address] [place] [phone] Perry Ocasio MD [address] [facility], [place] [address] Psoriasis (Primary Dx) Social History Tobacco Use Types Packs/Day Years Used Date Smoking Tobacco: Unknown Sex and Gender Information Value Date Recorded Sex Assigned at Not on file Gender Identity Not on file Sexual Orientation Not on file documented as of this encounter Patient Instructions * Patient Instructions* Vannesa Morrison LPN - 01/30/2014 2:32 PM EDT Images from the original note were not included. [facility] Psoriasis: After Your Visit Your Care Instructions Psoriasis (say eay-UZ-mu-cat) is a long-term skin problem that causes [...] still damp. This seals in moisture. Use lbnl-taq-sihpzfg products that your doctor suggests. These may [...] more? Visit our health information library at [email or web address] You can also view health information on [employer], your personal patient account. Log in or sign up today. Enter U759 in the search box to learn more about Psoriasis: After Your Visit. ?? [phone] [employer]. Care instructions adapted under license by [facility]. This care instruction is for use with your licensed healthcare professional. If you have questions about a medical condition or this instruction, always ask your healthcare professional. [employer] disclaims any warranty or liability for your use of this information. Content Version: 9.9.492861; Last Revised: May 16, 2013 documented in this encounter Progress Notes * Perry Ocasio MD - 01/30/2014 2:46 PM EDT Problems: 1. Followup psoriasis. 2. On methotrexate August through September 2013, now off for four months. Lisha follows up and is doing beautifully. She is 28, and her psoriasis really has only come back a little bit on her elbows. She wonders what can be done for this and wonders if she should go back on methotrexate. She tried using the clobetasol cream to her elbows without much benefit. Physical examination reveals a pleasant 28-year-old who has brown eyes and type IV Linton pigmentation and really no findings remaining on the shins, knees, or on her arms at the previous sites of involvement of psoriasis. She does have some thin patches limited over both elbows. Assessment and Plan: Psoriasis. a. I reassured the patient that she does not really need to go back on methotrexate, but I would recommend highly intralesional steroid injections. b. The patient agreed, and we tried this, utilizing 3 mL of 5 mg/mL Kenalog. c. The patient has clobetasol cream to use in case of recurrence. However, we discussed that hopefully she now can be clear for six months, particularly if she can get a little bit of summer sun. d. Return to clinic here will be p.r.n. COPY: Esther Martinez documented in this encounter Plan of Treatment Upcoming Encounters Date Type Department Care Team (Late st Contact Info) Description 10/17/2024 3:30 PM EST Office Visit Dermatology at [place] [address] [facility] [place] [address] Perry Ocasio MD [address] [facility], [place] [address] documented as of this encounter Visit Diagnoses Diagnosis Psoriasis- Primary Other psoriasis documented in this encounter Care Teams Safety Aide Relationship Specialty Start Date End Date Deborah Rodriguez APRN [facility] 1 [facility] [place] [address] PCP - General 09/12/13 04/05/17 documented as of this encounter
--- OUTSIDE RECORDS SUMMARY | 2024-10-10 14:45 | XMS_ITS | Encounter Summary ---
Author Organization [facility] [place] [address] Care Team Providers Care Efficiency Expert Name Role Phone Unknown Primary Care Provider Unavailabl e Reason for Visit * Reason Comments Medication Refill Encounter Details Date Type Department Care Team (Late st Contact Info) Description 09/19/2013 Refill Dermatology at [address] [address] Perry Ocasio MD [address] [place] [address], [facility] [place] [address] Social History Tobacco Use Types Packs/Day Years Used Date Smoking Tobacco: Unknown Sex and Gender Information Value Date Recorded Sex Assigned at Not on file Gender Identity Not on file Sexual Orientation Not on file documented as of this encounter Plan of Treatment Upcoming Encounters Date Type Department Care Team (Late Contact Info) Description 10/17/2024 3:30 PM EST Office Visit Dermatology at [address] [phone] Perry Ocasio MD [address] [place] [address], [facility] [place] [address] documented as of this encounter Visit Diagnoses Not on filedocumented in this encounter Care Teams Efficiency Expert Relationship Specialty Start Date End Date Unknown None PCP - General 09/21/23 documented as of this encounter
--- OUTSIDE RECORDS SUMMARY | 2024-10-10 14:45 | XMS_ITS | Encounter Summary ---
Author Organization [facility] Address [address] [place] [address] Care Team Providers Care Squirrel Man Name Role Phone Unavailable Primary Care Provider Unavailabl e Encounter Details Date Type Department Care Team (Latest Contact Info) Description 09/02/2001 13:[address] [facility] [address] [place] [address] Bessy Perez MD Discharge Disposition: Auto Discharge [...]
--- OUTSIDE RECORDS SUMMARY | 2024-10-10 14:45 | XMS_ITS | Clinical Summary ---
Author Organization [facility] Address [facility] [place] [address] Care Team Providers Care Vice President Of Development Name Role Phone Unknown Primary Care Provider Unavailabl e Allergies Active Allergy Reactions Criticality Noted Date Comments Aspirin, Buffered 08/10/2013 Aspirin Other (See Comments) 03/06/2022 Sulfamethoxazole-Trimethoprim Other (See Comments) 08/10/2013 Trimethoprim 04/04/2021 Medications Medication Sig Dispensed Refills Start Date End Date Status halobetasol (ULTRAVATE) 0.05 % Cream Apply twice daily to recurring psoriasis. 30 g 1 06/10/2018 Active Active Problems Problem Noted Date Diagnosed Date Acne vulgaris 06/10/2018 Psoriasis 08/10/2013 Social History Tobacco Use Types Packs/Day Years Used Date Smoking Tobacco: Former Smokeless Tobacco: Never Sex and Gender Information Value Date Recorded Sex Assigned at Not on file Gender Identity Not on file Sexual Orientation Not on file Plan of Treatment Upcoming Encounters Date Type Department Care Team (Late st Contact Info) Description 10/17/2024 3:30 PM EST Office Visit Dermatology at [place] [address] [place] [phone] Perry Ocasio MD [address], [place]I [place] [address] Health Maintenance Due Date Last Done Comments HIV screen 2003 Hepatitis C Screening 2003 Hepatitis B vaccine (0-59 yrs) (1) 2004 Tetanus/Diphtheria/Pertussis Vaccines (1 - Tdap) 08/30 HPV test 2015 PAP Smear 2015 Covid-19 Vaccine (2023- season) 2024 Influenza (Flu) vaccine (1 o f 1 - Influenza standard series) 06/11/2024 Care Teams Vice President Of Development Relationship Specialty Start Date End Date Unknown None PCP - General 09/21/23
--- OUTSIDE RECORDS SUMMARY | 2024-10-10 14:45 | XMS_ITS | Encounter Summary ---
Author Organization [facility] Address [address] [place] [address] Care Team Providers Care Armament Aircraft Mechanic Name Role Phone Unavailable Primary Care Provider Unavailabl e Encounter Details Date Type Department Care Team (Latest Contact Info) Description 09/12/2001 7:22 EST - 09/14/2001 11:59 EST Hospital Encounter [facility] Mother/Baby Unit [address] [place], [place] [address] Bessy Perez MD Discharge Disposition: Home or Self Care [...] Procedure Name Priority Date/Time Associated Diagnosis Comments COMPLETE BLOOD COUNT Routine 09/13/2001 7:45 EST HEMAGRAM & DIFF Routine 09/12/2001 8:45 EST documented in this encounter Results * HEMAGRAM (09/13/2001 7:45 EST) WBC 11.19 4.6 - 11.2 K/cmm [facility] RBC 4.26 4.10 - 5.10 M/cmm [facility] Hemoglobin 13.2 12.0 - 16.0 gm/dl [facility] HCT 38.5 36.0 - 46.0 % [facility] MCV 90 78 - 102 fl [facility] MCH 31.0 pg [facility] MCHC 34.3 gm/dl [facility] PLT 295 156 - 312 K/cmm [facility] RDW-CV 12.4 % [facility] 09/13/2001 7:45 EST 09/13/2001 7:48 EST Bessy Perez MD HEMATOLOGY & PF4 ORDERABLES Final Result [facility] [address] [place] [address] * HEMAGRAM & DIFF (09/12/2001 8:45 EST) WBC 8.88 4.6 - 11.2 K/cmm [facility] RBC 4.34 4.10 - 5.10 M/cmm [facility] Hemoglobin 13.5 12.0 - 16.0 gm/dl [facility] HCT 39.3 36.0 - 46.0 % [facility] MCV 90 78 - 102 fl [facility] MCH 31.0 pg [facility] MCHC 34.3 gm/dl [facility] PLT 297 156 - 312 K/cmm [facility] RDW-CV 12.6 % [facility] % Neutrophils 66.5 % [facility] % Lymphocytes 23.2 % [facility] % Monocytes 7.7 % [facility] % Eosinophils 2.3 % [facility] % Basophils 0.3 % [facility] ABS Neutrophils 5.91 K/cmm [facility] ABS Lymphs 2.06 K/cmm [facility] Monocytes 0.69 K/cmm [facility] Eosinophils 0.20 K/cmm [facility] ABS Basophils 0.03 K/cmm [facility] Type of Diff: Automated [facility] 09/12/2001 8:45 EST 09/12/2001 9:06 EST Bessy Perez MD HISTORICAL LAB FOR SQ LOAD F inal Result [facility] [address] [place] [address] documented in this encounter Visit Diagnoses Not on filedocumented in this encounter
--- OUTSIDE RECORDS SUMMARY | 2024-10-10 14:45 | XMS_ITS | Encounter Summary ---
Author Organization [facility] Address [facility] [place] [address] Care Team Providers Care Flatwork Assembler Name Role Phone Deborah Rodriguez CAPTAIN AIRLINE PILOT Primary Care Provider [phone]- [phone] Reason for Visit * Reason Comments Follow-up Psoriasis Encounter Details Date Type Department Care Team (Late st Contact Info) Description 05/30/2015 4:30 PM EDT Office Visit Dermatology at [address] [place] [phone] Perry Ocasio MD 580 [facility], [place] [address] Psoriasis Discharge Disposition: Home Social History Tobacco Use Types Packs/Day Years Used Date Smoking Tobacco: Former Sex and Gender Information Value Date Recorded Sex Assigned at Not on file Gender Identity Not on file Sexual Orientation Not on file documented as of this encounter Patient Instructions * Patient Instructions* Sylvie Murphy LPN - 05/30/2015 4:35 PM EDT Images from the original note were not included. [facility] Psoriasis: After Your Visit Your Care Instructions Psoriasis (say hdh-VE-ug-cat) is a long-term skin problem that causes [...] still damp. This seals in moisture. Use vtqo-uyh-bsjqyij products that your doctor suggests. These may [...] more? Visit our health information library at [email or web address].o You can also view health information on [email or web address], your personal patient account. Log in or sign up today. Enter U759 in the search box to learn more about Psoriasis: After Your Visit. ?? [phone] [employer] ([employer]). Care instructions adapted under license by [facility]. This care instruction is for use with your licensed healthcare professional. If you have questions about a medical condition or this instruction, always ask your healthcare professional. [employer] ([employer]) disclaims any warranty or liability for your use of this information. Content Version: 10.4.009498; Current as of: December 20, 2013 documented in this encounter Progress Notes * Perry Ocasio MD - 05/30/2015 4:54 PM EDT Problems: 1. Followup psoriasis. 2. Previously on methotrexate, August through September 2013, off it since then. Controlling psoriasis with intermittent Kenalog injections for elbow involvement. Lisha follows up, and after last seeing me in January 2015 has noted recurrence of involvement on her left elbow and a few papules on her shins and right elbow. She would like to have these treated. She wonders why things are coming back so soon. I think the problem was that at last visit, I gave fairly conservative amounts of Kenalog since the involvement she had was quite minimal. Physical examination today confirms a small, nickel-sized plaque on the left elbow; this is the largest of all that she has. Otherwise, she has 3- to 4-mm or smaller papulosquamous areas on her right elbow, on her anterior shins, and above her left knee. She has a good, moderate, even ward; she tans well. Assessment and Plan: Psoriasis, mild recurrence, elbows bilaterally and shins. a. Today the sites were injected with Kenalog 5 mg/mL; today a total of 3 mL was injected-the last visit was only 0.2 mL. b. The patient tolerated it well. c. I recommended return to clinic in another six months for repeat check. d. The patient would like to find a treatment other than Kenalog injections. Today I gave her a prescription for halobetasol cream, which she can apply b.i.d. p.r.n. for any areas of recurrence. She knows that the Kenalog shots are not a cure but are a temporary, usually six-month, reprieve from psoriasis. I will be happy to discuss other options with her should she find the halobetasol is not effective. She previously tried clobetasol and fluocinonide. COPY: Keyona Martinez M.D. documented in this encounter Plan of Treatment Upcoming Encounters Date Type Department Care Team (Late st Contact Info) Description 10/17/2024 3:30 PM EST Office Visit Dermatology at [address] [place] [address] Perry Ocasio MD [address] [facility] [place], [place] [address] documented as of this encounter Visit Diagnoses Diagnosis Psoriasis Other psoriasis documented in this encounter Care Teams Flatwork Assembler Relationship Specialty Start Date End Date Deborah Rodriguez APRN [facility] [address] [place] [address] PCP - General 09/12/13 04/05/17 documented as of this encounter
--- OUTSIDE RECORDS SUMMARY | 2024-10-10 14:45 | XMS_ITS | Encounter Summary ---
Author Organization [facility] [place] [address] Care Team Providers Care Synchro Assembler Name Role Phone Jasmin Thomson DO Primary Care Provider Unava ilable Encounter Details Date Type Department Care Team (Latest Contact Info) Description 09/10/2022 Travel Social History Tobacco Use Types Packs/Day [...] 3:30 PM EST Office Visit Dermatology at [place] [address] [facility] [place] [phone] Perry Ocasio MD [address], [place] [address] documented as of this encounter Visit Diagnoses Not on filedocumented in this encounter Care Teams Synchro Assembler Relationship Specialty Start Date End Date Jasmin Thomson DO PCP - General Family Medicine 04/06/17 09/20/23 documented as of this encounter
--- OUTSIDE RECORDS SUMMARY | 2024-10-10 14:45 | XMS_ITS | Encounter Summary ---
Author Organization [facility] Address [facility] [place] [address] Care Team Providers Care Weaver Axminster Name Role Phone Jasmin Thomson DO Primary Care Provider Unava ilable Reason for Visit * Reason Comments Follow-up Encounter Details Date Type Department Care Team ([facility] st Contact Info) Description 04/06/2017 3:45 PM EDT Office Visit Dermatology at [address] [place] [phone] Perry Ocasio MD [address], [place] [address] Psoriasis Social History Tobacco Use Types Packs/Day Years Used Date Smoking Tobacco: Former Sex and Gender Information Value Date Recorded Sex Assigned at Not on file Gender Identity Not on file Sexual Orientation Not on file documented as of this encounter Progress Notes * Perry Ocasio MD - 04/06/2017 3:45 PM EDT PROBLEM: 1. Follow-up psoriasis. 2. Previously on methotrexate, August through September 2013, off since then. 3. Controlling her psoriasis with intermittent Kenalog injections for elbow involvement. Lisha follows up and is doing well. She gave almost 7 months ago to her healthy baby girl, Merlene Alvarado. Since then, following the delivery, her psoriasis started to act up again. Patient has been waiting 3 months to get in to this appointment. 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 She has two 3 cm in diameter plaques of psoriasis on either elbow. Otherwise, her psoriasis is clear. A/P: 1. Psoriasis, mild recurrence, bilateral elbows. a. Today, sites were injected with Kenalog 5 mg/mL, a total of 4 mL injected between both sites. b. Patient tolerated it well. c. Return to clinic in another 5 months for repeat check. CC: Jasmin Thomson DO documented in this encounter Plan of Treatment Upcoming Encounters Date Type Department Care Team (Late st Contact Info) Description 10/17/2024 3:30 PM EST Office Visit Dermatology at [place] [address] [place] [address] Perry Ocasio MD 580 [facility], [place] [address] documented as of this encounter Visit Diagnoses Diagnosis Psoriasis Other psoriasis documented in this encounter Care Teams Weaver [place]minster Relationship Specialty Start Date End Date Jasmin Thomson DO PCP - General Family Medicine 04/06/17 09/20/23 documented as of this encounter
--- OUTSIDE RECORDS SUMMARY | 2024-10-10 14:45 | XMS_ITS | Clinical Summary ---
Author Organization [facility] Address [address] [place] [address] Care Team Providers Care Dyer And Washer Name Role Phone Md SELENA Heart Primary [...] Orientation Not on file Plan of Treatment Health Maintenance Due Date Last Done Comments Hepatitis C Screen 1985 Hepatitis B Vaccine (1 of 3 - 19+ 3-dose series) 08/30 COVID-19 Vaccine (2023- season) 2024 Insurance MEDICAID [place] Care Teams Dyer And Washer Relationship Specialty Start Date End Date Md Heart MD PCP - General 08/21/15
--- OUTSIDE RECORDS SUMMARY | 2024-10-10 14:45 | XMS_ITS | Encounter Summary ---
Author Organization [facility] Address [facility] [place] [address] Care Team Providers Care Press Offbearer Name Role Phone Daryn Barbosa MD Primary Care Provider [phone] Reason for Visit * Reason Comments Psoriasis Encounter Details Date Type Department Care Team (Late st Contact Info) Description 08/10/2013 3:05 PM EDT Office Visit Dermatology at [address] [phone] Perry Ocasio MD 580 [facility], [place] [address] Psoriasis (Primary Dx) Social History Tobacco Use Types Packs/Day Years Used Date Smoking Tobacco: Unknown Sex and Gender Information Value Date Recorded Sex Assigned at Not on file Gender Identity Not on file Sexual Orientation Not on file documented as of this encounter Progress Notes * Perry Ocasio MD - 08/10/2013 3:19 PM EDT Problem is psoriasis. Lisha is a 27-year-old woman who is referred today by Dr. Barbosa for evaluation and treatment of worsening psoriasis. Patient states that this first developed about three years ago and was limited just to her elbows. Recently she was exposed to Strep and developed a Strep pharyngitis and then had a flare of her psoriasis with guttate lesions widely over her body. She has been unable to control this with Lidex ointment. She is not aware of any family history of psoriasis. Physical examination reveals a pleasant 27-year-old who has brown eyes and dark blonde hair and type 3/4 Linton pigmentation. She has large plaques of hyperkeratotic scaling psoriasis over both elbows and more guttate lesions of psoriasis from her Strep pharyngitis widely over the arms, torso, and legs. Assessment and Plan: Psoriasis with recent guttate psoriatic flare due to Strep pharyngitis. a. Patient has been treated for Strep. b. Recommend that we begin methotrexate, taking six of the 2.5 mg tablets p.o. q.week. Warned about taking simultaneously with alcohol. The patient does drink on occasion, and she will cut back on this while on methotrexate. She denies any history of hepatitis or jaundice. c. Consider the option of phototherapy, but with her work schedule at [employer] and the [email or web address], daily phototherapy in [facility] (she lives in [place] currently) would not be feasible for her. d. No need to use fluocinonide ointment topically while on methotrexate. She was given #30 of these with zero refills. e. Also begin folate 1 mg p.o. q.day every day except for the day of methotrexate dosing. Return to clinic in one month for repeat check with methotrexate labs at that time. We will plan on a one to two-month course and then tapering down and off again once we have her cleared. COPY: Daryn Barbosa M.D. documented in this encounter Plan of Treatment Upcoming Encounters Date Type Department Care Team (Late st Contact Info) Description 10/17/2024 3:30 PM EST Office Visit Dermatology at [place] [address] [place] [address] Perry Ocasio MD [address], [place] [address] documented as of this encounter Visit Diagnoses Diagnosis Psoriasis- Primary Other psoriasis documented in this encounter Care Teams Press Offbearer Relationship Specialty Start Date End Date Daryn Barbosa MD [facility] [address] [facility] [place] [address] PCP - General 10/8/13 12/2/13 documented as of this encounter
--- OUTSIDE RECORDS SUMMARY | 2024-10-10 14:45 | XMS_ITS | Encounter Summary ---
Author Organization [facility] [place] [address] Care Team Providers Care Wet Char Conveyor Tender Name Role Phone Jasmin Thomson DO Primary Care Provider Unava ilable Reason for Visit * Reason Comments Follow-up Psoriasis Encounter Details Date Type Department Care Team (Late st Contact Info) Description 12/16/2018 3:15 PM EST Office Visit Dermatology at [address] [place] [phone] Perry Ocasio MD [address], [place] [address] Psoriasis; Acne vulgaris Social History Tobacco Use Types Packs/Day Years Used Date Smoking Tobacco: Former Smokeless Tobacco: Never Sex and Gender Information Value Date Recorded Sex Assigned at Not on file Gender Identity Not on file Sexual Orientation Not on file documented as of this encounter Progress Notes * Perry Ocasio MD - 12/16/2018 3:15 PM EST Problem: 1. Follow-up psoriasis recurrent on elbows 2. Previously on methotrexate August - September 2013 3. Controlling her psoriasis with intermittent Kenalog injections for elbow involvement 4. Utilizing clindamycin 1% solution prn for adult acne Lisha follows up and is doing well. 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 Her elbows have started to develop psoriasis again and she would appreciate have another set of steroid injections. She does not find that the halobetasol cream works for her. She does not desire that anylonger. She is using the clindamycin solution as needed for adult acne and that does work well Physical examination reveals a pleasant 33-year-old woman who has small plaques of psoriasis on both elbows otherwise she is clear without other stigmata of psoriasis. Assessment plan: Psoriasis, mild recurrence, bilateral elbows 1. Today both sites were injected with Kenalog 5 mg a mL a total of 1.5 mL's injected between both sites 2. Patient tolerated well 3. Recommend check another 6 months repeat check 4. No further prescription for halobetasol cream will be given. CC: Jasmin Thomson DO documented in this encounter Plan of Treatment Upcoming Encounters Date Type Department Care Team (Late st Contact Info) Description 10/17/2024 3:30 PM EST Office Visit Dermatology at [place] [address] [place] [address] Perry Ocasio MD [address] [facility], [place] [address] documented as of this encounter Visit Diagnoses Diagnosis Psoriasis Other psoriasis Acne vulgaris Other acne documented in this encounter Care Teams Wet Char Conveyor Tender Relationship Specialty Start Date End Date Jasmin Thomson DO PCP - General Family Medicine 04/06/17 09/20/23 documented as of this encounter
--- OUTSIDE RECORDS SUMMARY | 2024-10-10 14:45 | XMS_ITS | Encounter Summary ---
Author Organization [facility] Address [facility] [place] [address] Care Team Providers Care Lending Manager Name Role Phone Jasmin Thomson DO Primary Care Provider Unava ilable Reason for Visit * Reason Comments Follow-up Encounter Details Date Type Department Care Team ([facility] st Contact Info) Description 06/10/2018 3:15 PM EDT Office Visit Dermatology at [address] [phone] Perry Ocasio MD [address], [place] [address] Psoriasis; Acne vulgaris Social History Tobacco Use Types Packs/Day Years Used Date Smoking Tobacco: Former Smokeless Tobacco: Never Sex and Gender Information Value Date Recorded Sex Assigned at Not on file Gender Identity Not on file Sexual Orientation Not on file documented as of this encounter Progress Notes * Perry Ocasio MD - 06/10/2018 3:15 PM EDT Problem: 1. Follow-up psoriasis recurrent on elbows 2. Previously on methotrexate August - September 2013 3. Controlling her psoriasis with intermittent Kenalog injections for elbow involvement 4. Utilizing clindamycin 1% solution daily for adult acne Lisha follows up and has had slow recurrence of her elbow psoriasis she like to have injections. She recently was out [address] [place] and during a rest stop for a call of nature may have come into contact with poison shira. She has a rash on her left buttock. She was starting on prednisone by her PCP. She is taking 1 a day over a 10 day course but still has some rash left. The family recently got back from a trip down to [place] all the way further south to different theme [place] and enjoyed themselves a lot. Physical examination reveals a pleasant 32-year-old woman who has a 1.5 cm plaque on the left elbowand a 2 cm plaque on the right elbow. Otherwise she has no other stigmata of psoriasis. She has spongiotic papules on the left buttock in a 5 x 6 cm patch. Otherwise examination today's benign and her acne is quiescent. She is moderately tanned. Assessment plan: Psoriasis mild recurrence bilateral elbows right worse than left today 1. Today both sites were injected with Kenalog 5 mg mL total of 1 mL inject between both sites 2. Patient tolerated this well. 3. Return to clinic in another 6 months for repeat check 4. Prescription will be given for more halobetasol cream to apply twice daily to recurring psoriasis may also use for left buttock rash. Dispense 30 g with 1 refills. Call into her [facility] pharmacyin [place]. Spongiotic dermatitis left buttock 1. Consistent with possible rhus dermatitis 2. Agree with prednisone course. Would also recommend halobetasol cream be applied on a twice dailybasis for another week or 2 to get this to clear up. Adult acne vulgaris 1. Patient will be given refill for clindamycin 1% solution apply to face on a daily basis dispensed 60 mL's with with as needed refills. Cc: Jasmin Thomson DO documented in this encounter Plan of Treatment Upcoming Encounters Date Type Department Care Team (Late st Contact Info) Description 10/17/2024 3:30 PM EST Office Visit Dermatology at [place] [address] [place] [address] Perry Ocasio MD [address] [facility], [place] [address] documented as of this encounter Visit Diagnoses Diagnosis Psoriasis Other psoriasis Acne vulgaris Other acne documented in this encounter Care Teams Lending Manager Relationship Specialty Start Date End Date Jasmin Thomson DO PCP - General Family Medicine 04/06/17 09/20/23 documented as of this encounter
--- OUTSIDE RECORDS SUMMARY | 2024-10-10 14:45 | XMS_ITS | Encounter Summary ---
Author Organization [facility] Address [address] [place] [address] Care Team Providers Care Alarm Signal Operator Name Role Phone Unavailable Primary Care Provider Unavailabl e Encounter Details Date Type Department Care Team (Latest Contact Info) Description 2001 10:34 EST - 2001 11:59 EST Hospital Encounter [address] [address] Bessy Perez MD Discharge Disposition: Auto Discharge [...]
--- OUTSIDE RECORDS SUMMARY | 2024-10-10 14:45 | XMS_ITS | Encounter Summary ---
Author Organization [facility] [place] [address] Care Team Providers Care Interface Engineer Name Role Phone Jasmin Thomson DO Primary Care Provider Unava ilable Reason for Visit * Reason Comments Follow-up Encounter Details Date Type Department Care Team ([facility] st Contact Info) Description 02/21/2021 4:15 PM EDT Office Visit Dermatology at [address] [place] [phone] Perry Ocasio MD [address], [place] [address] Acne vulgaris; Psoriasis Social History Tobacco Use Types Packs/Day Years Used Date Smoking Tobacco: Former Smokeless Tobacco: Never Sex and Gender Information Value Date Recorded Sex Assigned at Not on file Gender Identity Not on file Sexual Orientation Not on file documented as of this encounter Progress Notes * Perry Ocasio MD - 02/21/2021 4:15 PM EDT Problem: 1. 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 ??Previously on methotrexate August - September 2013 3. ??Controlling her psoriasis with intermittent Kenalog injections for elbow involvement 4. ??Utilizing clindamycin 1% solution??prn??for adult acne ?? Lisha follows up for repeat check. Her psoriasis is again beginning to develop on her elbows bilaterally. She wonders about another Kenalog injection. Physical examination reveals psoriatic small plaques developing on both extensor or elbows. Assessment plan: Psoriasis, extensor elbows 1. Today Kenalog 5 mg/ mL injection both sites a total of 3 mls were utilized 2. Return to clinic in 6 months for repeat check. 3. Patient continues be quite pleased with her control using this approach CC: Jasmin Thomson DO documented in this encounter Plan of Treatment Upcoming Encounters Date Type Department Care Team (Late st Contact Info) Description 10/17/2024 3:30 PM EST Office Visit Dermatology at [place] [address] [place] [phone] Perry Ocasio MD [address] [facility], C[address] [place] [address] documented as of this encounter Visit Diagnoses Diagnosis Acne vulgaris Other acne Psoriasis Other psoriasis documented in this encounter Care Teams Interface Engineer Relationship Specialty Start Date End Date Jasmin Thomson DO PCP - General Family Medicine 04/06/17 09/20/23 documented as of this encounter
--- OUTSIDE RECORDS SUMMARY | 2024-10-10 14:46 | XMS_ITS | Encounter Summary ---
Author Organization [facility] Address [address] [place] [address] Care Team Providers Care Reefer Truck Driver Name Role Phone Unavailable Primary Care Provider Unavailabl e Encounter Details Date Type Department Care Team (Late st Contact Info) Description 05/06/2001 Results Only [facility] - [facility] [address] [place] [address] Bette Strange CNM Social History Tobacco Use Types Packs/Day Years [...] Priority Date/Time Associated Diagnosis Comments CYTOPATHOLOGY Routine 05/06/2001 0:00 EDT documented in this encounter Results * CYTOPATHOLOGY (05/06/2001 0:00 EDT) Pathology Report: CYTOPATHOLOGY REPORT Reports generated via electronic interface contain original data; however they are lacking the format of the original report. Caution should be taken when reading/interpreti ng unformatted reports. Name: ? WYATT ESPINOSA ? Accession #: ? [id number] : ? 1985 (Age: 15) ??F ?Collect Date: ? 05/06/2001 Location: ? [facility] ? Receive Date: ? 05/10/2001 Provider: ?BETTE KIRKM Copy to: ? Specimen/Source: ?ThinPrep Pap Test, Cervix/Endocervix Last Menstrual Period: ? 11/11 Previous Gynecologic Pathology: ? ASC-US: cannot rule out MARITZA. Treatment History: ? Colposcopy: 02/11/01 ? 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 SPECIMEN ADEQUACY ? Satisfactory for evaluation but limited by an absence of a transformation zone component. GENERAL CATEGORIZATION ? Within Normal Limits ? Document reviewed and electronically signed by: ? GROVER Ledezma(ASCP) ? Report Date: ??05/13/2001 09:06 End of Report [facility] 05/06/2001 05/10/2001 us Bette Strange CNM PATHOLOGY ORDERABLES Final Resu lt [facility] [address] [place] [address] documented in this encounter Visit Diagnoses Not on filedocumented in this encounter
--- OUTSIDE RECORDS SUMMARY | 2024-10-10 14:46 | XMS_ITS | Encounter Summary ---
Author Organization [facility] Address [address] [place] [address] Care Team Providers Care Frozen Foods Manager Name Role Phone Unavailable Primary Care Provider Unavailabl e Encounter Details Date Type Department Care Team (Late st Contact Info) Description 01/06/2001 Results Only [facility] - [place] [facility] [address] [place] [address] Abigail Vazquez MD [address] [facility] [address] [place] [address] Social History Tobacco Use Types [...] Priority Date/Time Associated Diagnosis Comments CYTOPATHOLOGY Routine 01/06/2001 0:00 EST documented in this encounter Results * CYTOPATHOLOGY (01/06/2001 0:00 EST) Pathology Report: CYTOPATHOLOGY REPORT Reports generated via electronic interface contain original data; however they are lacking the format of the original report. Caution should be taken when reading/interpreti ng unformatted reports. Name: ? WYATT ESPINOSA Zac ? Accession #: ? [id number] : ? 1985 (Age: 15) ??F ?Collect Date: ? 01/06/2001 Location: ? [facility] ? Receive Date: ? 01/10/2001 Provider: ?ABIGAIL VAZQUEZ MD Copy to: ? Specimen/Source: ?ThinPrep Pap Test, Cervix/Endocervix Last Menstrual Period: ? 11/28/00 Menstrual/Pregnanc y Status: ? SPECIMEN ADEQUACY ? Satisfactory for evaluation. GENERAL CATEGORIZATION ? Epithelial Cell Abnormality DESCRIPTIVE DIAGNOSIS ? Atypical squamous cells of undetermined significance (ASCUS), cannot rule out squamous intraepithelial lesion (MARITZA). RECOMMENDATION ? Recommend clinical correlation and further evaluation, as clinically indicated. ? Document reviewed and electronically signed by: ? OLGA LIDIA VILLARREAL MD ? Report Date: ??01/12/2001 14:48 End of Report [facility] 01/06/2001 01/10/2001 us Abigail Vazquez MD PATHOLOGY ORDERABLES Final Resul t [facility] [address] [place] [address] documented in this encounter Visit Diagnoses Not on filedocumented in this encounter
--- OUTSIDE RECORDS SUMMARY | 2024-10-10 14:46 | XMS_ITS | Encounter Summary ---
Author Organization [facility] Address [address] [place] [address] Care Team Providers Care Health Analytics Consultant Name Role Phone Unavailable Primary Care Provider Unavailabl e Encounter Details Date Type Department Care Team (Late st Contact Info) Description 02/11/2001 Results Only [facility] - [place] conversion [address] [place] [address] Al Zmaora MD [address] [address] Social History Tobacco Use Types Packs/Day Years [...] Procedure Name Priority Date/Time Associated Diagnosis Comments HPV DETECTION, HIGH RISK TYPES Routine 02/11/2001 14:30 EDT CYTOPATHOLOGY Routine 02/11/2001 0:00 EDT documented in this encounter Results * HUMAN PAPILLOMA VIRUS DNA TEST (02/11/2001 14:30 EDT) Specimen Description Cervix, ThinPrep vial [facility] Result Positive for one or more of HPV types 16,18,31,33,35 ,39,45,51,52,5 6,58,59, or 68. These high/intermedi ate risk HPV types are associated with dysplasia and some cervical cancers. [facility] Report Status Final [id number] [facility] 02/11/2001 14:3 0 EDT 02/17/2001 9:09 EDT us Al Zamora MD MICROBIOLOGY - GENERAL ORDERABL ES Final Result [facility] [address] [place] [address] * CYTOPATHOLOGY (02/11/2001 0:00 EDT) Pathology Report: CYTOPATHOLOGY REPORT Reports generated via electronic interface contain original data; however they are lacking the format of the original report. Caution should be taken when reading/interpreti ng unformatted reports. Name: ? WYATT LEARY ? Accession #: ? [id number] : ? 1985 (Age: 15) ??F ?Collect Date: ? 02/11/2001 Location: ? [facility] ? Receive Date: ? 02/15/2001 Provider: ?AL ZAMORA MD Copy to: ? Specimen/Source: ?ThinPrep Pap Test, Cervix/Endocervix Last Menstrual Period: ? 11/28/00 Menstrual/Pregnanc y Status: ? Previous Gynecologic Pathology: ? ASC-US: in preg. Treatment History: ? Colposcopy: negative Other: ? Colposcopy Pap and/or biopsy in progress HPVDX - HPV testing requested regardless of diagnosis on current ThinPrep Pap test. Additional clinical information: R/o condyloma. ? SPECIMEN ADEQUACY ? Satisfactory for evaluation. GENERAL CATEGORIZATION ? Epithelial Cell Abnormality DESCRIPTIVE DIAGNOSIS ? Low grade squamous intraepithelial lesion (LSIL). ? Document reviewed and electronically signed by: ? Yoselin Matthew MD PhD ? Report Date: ??02/16/2001 16:49 End of Report [facility] 02/11/2001 02/15/2001 us Al Zamora MD PATHOLOGY ORDERABLES Final Resu lt [facility] [address] [place] [address] documented in this encounter Visit Diagnoses Not on filedocumented in this encounter
== END 2024-10-10 14:41 | disposition home or self-care (01) ==
LOC: LBN 14:40
PROVIDERS: PCP Family Medicine; Visit Provider Physician Assistant Medical
DX: J02.9 Acute pharyngitis, unspecified (principal)
CPT/HCPCS: 87070

== ENCOUNTER 2025-08-06 22:07 | Emergency (ER) | payer OTHER, SELFPAY ==
[2025-08-06 22:12] VITALS: BP 161/88; PULSE 98; RESP 16; TEMP 36.4; O2SAT 98
--- NOTE | 2025-08-06 22:22 | ED.GENADUL_ITS ---
"Discharge Plan Disposition Patient Disposition: Home Condition: Good Discharge Details Clinical Impression: Left ankle injury, Partial tear of ligament of lateral aspect of ankle Primary Care Provider: Abigail Vazquez ED Provider: Louis Koo Home Meds and New Rx's Prescriptions: No Action No Known Home Meds Discharge Instructions Instructions: Ankle sprain Additional Instructions: At this time there is concern that he may have had a tear of the anterior talofibular ligament on your left ankle on the lateral aspect. Please take Tylenol and Motrin, or use topical Voltaren gel to help with the pain and swelling. For the next week please remain nonweightbearing on your left ankle. Use the crutches at all times. After this if your pain is improving you can gr adually bear weight for the following week while using your crutches and a walking ankle boot. If your symptoms continue to improve you can then transition to 1 crutch for the next week followed by no crutches the week after. After a week of just using the walking boot you can transition to a lace up ankle brace. If you have persistent pain and swelling without any improvement or resolution even after 2 weeks of conservative therapy of ice, NSAIDs and rest, you may need further assessment by an center medical specialist. If you notice any worsening of your symptoms, or any new symptoms such as vomiting, diarrhea, fever, chills, shortness of breath, chest pain, numbness, weakness, or fainting , please return immediately to the emergency department for reevaluation. Please follow up with your primary care provider as soon as possible for reassessment and reevaluation. As always, it was a pleasure participating in your medical care today. Stand Alone Forms: Work Release Referrals: Abigail Vazquez MD [Primary Care Provider, Medicine] [facility] General Date/Time Provider Initiated Documentation: 08/06/25 22:09 . HPI Narrative: 39-year-old female with a past medical history of tubal ligation presents today for evaluation of left ankle pain. Patient states about 3 hours ago she was walking and missed a step and inverted her left ankle, she heard a pop and had immediate pain and swelling. Pain is made worse with movement palpation and ambulation. She did take 800 mg of ibuprofen with mild improvement of symptoms. She has pain with bearing weight. No other complaints at this time. No other modifying factors. She did not hit her head. No loss of consciousness. No other tenderness or trauma otherwise Related Data Home Medications ?Medication ?Instructions ?Recorded ?Confirmed Unknown [No Known Home Meds] 10/10/24 1 Allergies Allergy/AdvReac Type Severity Reaction Status Date / Time sulfamethoxazole (From Allergy Unknown Hives Unverified 10/10/24 10:10 Bactrim) trimethoprim (From Bactrim) Allergy Unknown Hives Unverified 10/10/24 10:10 aspirin AdvReac Severe rectal Unverified 10/10/24 10:10 bleeding General Stated Complaint: Orthopedic SUE: 3 Exam Narrative Exam Narrative: 1.Const: Well-nourished, Well-developed, appearing stated age 2.Eyes: PERRL, no conjunctival injection, and symmetrical lids. 3.ENT: Atraumatic external nose and ears. Moist MM. Neck: Symmetric, trachea midline, No thyromegaly. 4.CVS: +S1/S2, Peripheral pulses 2+ and equal in all extremities. Brisk capillary refill in all extremities. 5.RESP: Unlabored respiratory effort. Clear to auscultation bilaterally. No wheezes rales or rhonchi 6.GI: Soft, Nontender/Nondistended, No hepatosplenomegaly. No guarding or rebound. 7.MSK: Left ankle demonstrates swelling at the lateral malleolus, tenderness in that area, no calcaneal tenderness, no mid or proximal fibular or tibial tenderness. No distal tibial tenderness. Intact sensation throughout the left foot, normal capillary refill and dorsalis pedis and posterior tibial pulses. Notable pain with passive and active eversion. No significant with pain with plantar or dorsiflexion. 8.Skin: Warm, Dry. No rashes or lesions. 9.Neuro: robotics mechanic II-XII grossly intact. Sensation grossly intact, no focal neurologic deficits. 10.Psych: (AAO) x3. Appropriate mood and affect Course Vital Signs Vital signs: Vital Signs Temperature 36.4 C L 08/06/25 22:12 Pulse 98 H 08/06/25 22:12 Respiratory Rate 16 08/06/25 22:12 Blood Pressure 161/88 H 08/06/25 22:12 Pulse Oximetry 98 08/06/25 22:12 Temperature 36.4 C L 08/06/25 22:12 Temperature Source Temporal Artery Scan 08/06/25 22:12 Pulse 98 H 08/06/25 22:12 Respiratory Rate 16 08/06/25 22:12 Blood Pressure 161/88 H 08/06/25 22:12 Blood Pressure Position Sitting 08/06/25 22:12 Pulse Oximetry 98 08/06/25 22:12 Oxygen Delivery Method Room Air 08/06/25 22:12 Oxygen Flow Rate 0 08/06/25 22:12 Pain Level 7 08/06/25 22:16 Medical Decision Making 39-year-old female with a past medical history of tubal ligation presents today for evaluation of left ankle pain. Patient states about 3 hours ago she was walking and missed a step and inverted her left ankle, she heard a pop and had immediate pain and swelling. Pain is made worse with movement palpation and ambulation. She did take 800 mg of ibuprofen with mild improvement of symptoms. She has pain with bearing weight. No other complaints at this time. No other modifying factors. She did not hit her head. No loss of consciousness. No other tenderness or trauma otherwise Left ankle demonstrates swelling at the lateral malleolus, tenderness in that area, no calcaneal tenderness, no mid or proximal fibular or tibial tenderness. No distal tibial tenderness. Intact sensation throughout the left foot, normal capillary refill and dorsalis pedis and posterior tibial pulses. Notable pain with passive and active eversion. No significant with pain with plantar or dorsiflexion. Exam is concerning for potential distal fibular injury, tear of the ATF, or other osseous injury. Will get x-rays monitor closely and reassess. 1:22 AM X-ray shows evidence of questionable avulsion fracture on the lateral aspect, concern for tear of the lateral ligaments. Patient will be given walking boot, crutches, and instructed to remain nonweightbearing for the next 1 to 2 weeks. Work note has been provided. Recommend continued NSAID therapy. Discussed red flags for which to return. I have extensively reviewed the treatment plan and discharge instructions with the patient. I have addressed all patient concerns at this time. The patient was made aware of what symptoms to monitor for that would warrant a return to the emergency department. Discussed the plan with the patient, they demonstrate verbal understanding and agreement with our assessment and plan at this time. The documentation in this chart was dictated using [employer] dictation software. Please excuse any dictation errors. FINDINGS: Bones/joints: A subtle bone fragment is present within the soft tissues approximately 1.4 cm below the lateral malleolus. No other suspicious bony lesions. Soft tissues: There is marked lateral malleolar soft tissue swelling. IMPRESSION: Marked lateral malleolar soft tissue swelling and questionable avulsion fracture with bone fragment as described above. Differential considerations include a small soft tissue calcification. Thank you for allowing us to participate in the care of your patient. Dictated and Authenticated by: Leigh Carrasco MD 08/06/2025 11:15 PM Eastern Time ([place] & [place]) PFSH All Active Problems (Updated 08/06/25 @ 23:38 by Louis Koo DO) Partial tear of ligament of lateral aspect of ankle (Acute) Left ankle injury (Acute) Injury of knee (Acute) Social History Smoking/Tobacco Use Status: Former Tobacco Use Quit Date: 03/11/21 Smoking risk assessment performed?: Yes Alcohol Intake: current Alcohol Intake frequency: a few times a week Drug use: Occasionally Substance use type: marijuana Do you feel safe at home: Yes Do you feel safe in your relationship?: Yes PAWSS Have you Been Recently Intoxicated or Drunk Within the Last 30 days?: No Have you Ever Experienced Previous Episodes of Alcohol Withdrawal?: No Have you ever Experienced Withdrawal Seizures?: No Have you ever Experienced Delirium Tremens(DT)s?: No Have you ever undergone Alcohol Rehabilitation Treatment (i.e, inpt ot outpatient treatment programs)?: No Have you ever Experienced Blackouts?: No Have you ever Combined Alcohol with other Downers within the last 90 days?: No Have you ever Combined Alcohol with any other Substance of Abuse during the last 90 days?: No Positive Blood Alcohol level on Presentation? [PCS.BAL]: No Evidence of Increased Autonomic Activity (i.e. HR>120, tremor, sweating, agitation, nausea)?: No Result: 0"
--- NOTE | 2025-08-06 22:52 | DI.RAD_ITS ---
Exam(s) XR ANKLE LT COMPLETE EXAM: XR ANKLE LT COMPLETE CLINICAL HISTORY: left lateral ankle pain after fall. TECHNIQUE: 2D digital imaging was performed. COMPARISON: No exams were available for comparison FINDINGS: 3 views There is prominent soft tissue swelling over the lateral aspect of the ankle. There are 2 small soft tissue calcifications. One is immediately below the inferior cortex the lateral malleolus is probably an avulsion-type injury. The other is a 3 millimeter calcific density located 1.4 cm below the lateral malleolus which is possibly also is somewhat distant avulsion injury fragment either off the lateral malleolus or the lateral aspect of the talus. Base of the 5th metatarsal is intact. There is no widening the ankle mortise. No degenerative changes evident. IMPRESSION: Prominent lateral soft tissue swelling. Avulsion fracture and other soft tissue calcifications described above. Appropriate follow-up recommended. DATA REPOSITORY: RADIATION DOSE DELIVERED:
--- NOTE | 2025-08-06 23:16 | DI.VRAD_ITS ---
PROCEDURE INFORMATION: Exam: XR Left Ankle Exam date and time: 08/06/2025 10:53 PM Age: 39 years old Clinical indication: Injury or trauma; Fall; Swelling (edema); Ankle; Left; Additional info: Left lateral ankle pain after fall TECHNIQUE: Imaging protocol: Radiologic exam of the left ankle. Views: 3 or more views. COMPARISON: No relevant prior studies available. FINDINGS: Bones/joints: A subtle bone fragment is present within the soft tissues approximately 1.4 cm below the lateral malleolus. No other suspicious bony lesions. Soft tissues: There is marked lateral malleolar soft tissue swelling. IMPRESSION: Marked lateral malleolar soft tissue swelling and questionable avulsion fracture with bone fragment as described above. Differential considerations include a small soft tissue calcification. Dictated and Authenticated by: Leigh Carrasco MD. Orderin Hanane Myers MD
[2025-08-06 23:47] VITALS: PULSE 84; RESP 16; O2SAT 98
== END 2025-08-07 00:24 | disposition home or self-care (01) ==
PROVIDERS: Emergency Provider Student in an Organized Health Care Education/Training Program; PCP Family Medicine
DX: S93.492A Sprain of other ligament of left ankle, initial encounter (principal); W18.39XA Other fall on same level, initial encounter; Y93.01 Activity, walking, marching and hiking; Z87.891 Personal history of nicotine dependence
CPT/HCPCS: 99283; 73610